=== PATIENT | female | born 1970 | race Caucasian/White ===

== ENCOUNTER → 2018-09-03 07:11 | Outpatient (CLI) | payer OTHER, SELFPAY ==
--- NOTE | 2018-09-03 07:19 | BI_ITS ---
MAMMOGRAPHY - BILATERAL SCREENING 3-D HALIMA SYNTHESIS REASON FOR EXAM: Female, 48 years old. Bilateral Screening 3-D tomosynthesis PERTINENT HISTORY: Personal history of melanoma at age 47. TECHNIQUE: 2-D mammograms and 3-D Halima synthesis of the breast (s) were performed. CAD was performed. COMPARISON: None. FINDINGS: The breast composition is almost entirely fat. Scattered benign calcifications are stable. There are stable normal-appearing lymph nodes. No dense spiculated masses or suspicious microcalcifications are identified. No architectural distortion is identified. There is no skin thickening or retraction. There has been no significant change since the prior study. BI/SCREENING MAMM (CAD), BILAT IMPRESSION: No mammographic signs of malignancy. Routine yearly mammograms recommended. ASSESSMENT CATEGORY: BIRADS Category 2: Benign. A letter regarding these results will be sent to the patient by the facility within 30 days. FOLLOW UP RECOMMENDATION: Yearly follow up mammogram recommended. (A) Approximately 10% of breast cancers are not detected by mammography. A normal mammogram should not delay biopsy of a clinically suspicious abnormality. Electronically Signed: Danyel Tam MD at 17:49 EDT , Service support ,
== END ==
PROVIDERS: Family Provider Family Medicine; PCP Family Medicine; Visit Provider Family Medicine
DX: Z12.31 Encounter for screening mammogram for malignant neoplasm of breast (principal)
CPT/HCPCS: 77063; 77067

== ENCOUNTER → 2018-09-28 16:17 | Outpatient (CLI) | payer OTHER, SELFPAY ==
[2018-09-28 11:08] VITALS: BMI 22.1
[2018-10-04 17:43] LABS: HPV APTIMA, High Risk Positive (Negative)
== END ==
PROVIDERS: Family Provider Family Medicine; PCP Family Medicine; Referring Provider Obstetrics & Gynecology; Visit Provider Obstetrics & Gynecology
DX: Z12.4 Encounter for screening for malignant neoplasm of cervix (principal)
CPT/HCPCS: 87624; 88175; G0145

== ENCOUNTER → 2018-11-23 13:13 | Outpatient (CLI) | payer OTHER, SELFPAY ==
--- NOTE | 2018-11-23 | IMM_PTH ---
PATIENT: NAY ALBRIGHT LOC: [facility] U#:[id number] AGE/SX: 54/F ROOM: RE11/23/[address]: Dr. Elizabeth Lentz MD : 1970 BED: DIS: SPEC #: [id number] RECD: 11/24/18 12:46 STATUS: BEVERLEY REQ #: [id number] DESTINI: 11/23/18 00:[address]: Elizabeth Lentz DEPT: IMMUNOHISTOCHEMISTRY RECD BY: Radha Gomez ENTERED: 11/24/18 12:46 SP TYPE: IMMUNO OTHR DR: Dr. Clifton Olson, Tissues: B - Uterine cervix, NOS Procedures: p16 (initial) KI-67 (add) PHYSICIAN & [place] [id number] SPECIMEN INFORMATION: Tissue Source: B - Biopsy Clinical Info: ASCUS, HPV positive Specimen Number: [id number] CPT code: 94205, 13521 METHODOLOGY: Deparaffinized sections of prefer/formalin-fixed tissue or PAP/DQ stained slides are incubated with monoclonal/polyclonal antibodies/oligonucleotide probes. Localization is made via biotin free immunoperoxidase method. Appropriate controls are performed and reacted as expected. Results on target cell population are indicated in the following table: RESULTS: ANTIBODY / CLONE RESULT Block B P16 (E6H4) positive, focal, patchy Ki-67 (30-9) positive, low These tests were developed and their performance characteristics determined by [facility]. They may not have been cleared or approved by the U.S. Food and Drug Administration. The FDA has determined that such clearance or approval is not necessary. INTERPRETATION: B. Cervical biopsy: Consistent with focal HPV change. AM:sallie 11/25/18
--- NOTE | 2018-11-23 | ECC_PTH ---
PATIENT: NAY ALBRIGHT LOC: [facility] U#:[id number] AGE/SX: 54/F ROOM: RE11/23/[address]: Dr. Elizabeth Lentz MD : 1970 BED: DIS: SPEC #: [id number] RECD: 11/23/18 12:54 STATUS: BEVERLEY MADELINE #: [id number] DESTINI: 11/23/18 00:[address]: Elizabeth Lentz DEPT: SURGICAL PATHOLOGY RECD BY: Fermin Burgess ENTERED: 11/23/18 14:07 SP TYPE: ADDY MEYER DR: Dr. Clifton Olson, DO Tissues: A - Endocervical B - Uterine cervix, NOS Procedures: Surgery Specimen Level IV HEADER OPERATION: Colposcopy PRE-OP DIAGNOSIS: ASCUS, HPV positive TISSUE SUBMITTED: ABoris DALY B. Biopsy MICROSCOPIC DIAGNOSIS A. Endocervix, curettings: Scant strips of benign superficial endocervix. Fragment of benign squamous mucosa. No evidence of dysplasia. B. Biopsy, not further specified: Squamous mucosa with HPV change/FINA I. Squamous metaplasia and mild chronic inflammation. See comment. AM:sallie 11/24/18 COMMENT B. Results from immunohistochemistry ([id number]) for surrogate HPV marker (p16) will be reported separately. Case has been reviewed in consultation with Dr. Seaman who concurs with the above diagnosis. IDC:VALENTINE MICROSCOPIC DESCRIPTION Slides are reviewed. GROSS DESCRIPTION A - Received in fixative is one container labeled with the patient's name and designated ECC. The specimen consists of multiple scant fragments of oneal mucoid tissue that in aggregate measure 1 x 0.3 x 0.1 cm. The specimen is totally submitted in one cassette. B - Received in fixative is one container labeled with the patient's name and designated biopsy. The specimen consists of one irregular fragment of light oneal soft tissue that measures 0.3 x 0.3 x 0.1 cm. The specimen is totally submitted in one cassette. / VALENTINE:sallie 11/23/18 TC:5 CPT: 96760 x2
[2018-11-23 11:56] VITALS: BMI 22.3
== END ==
PROVIDERS: Family Provider Family Medicine; PCP Family Medicine; Referring Provider Obstetrics & Gynecology; Visit Provider Obstetrics & Gynecology
DX: R87.610 Atypical squamous cells of undetermined significance on cytologic smear of cervix (ASC-US) (principal)
CPT/HCPCS: 88305; 88341; 88342

== ENCOUNTER 2019-05-05 13:30 | Outpatient (RCR) | payer OTHER, SELFPAY ==
[2018-09-28 11:08] VITALS: BMI 22.1
[2018-11-23 11:56] VITALS: BMI 22.3
--- NOTE | 2018-11-23 16:32 | MASS.EVAL ---
Massage Therapy Evaluation: Initial Evaluation Date: 11/23/2018 SUBJECTIVE: Martha is a 48 year old female who was referred to the [facility] for a massotherapy evaluation by Dr. Pisano with the diagnosis of cerviaclgia. Martha presents today with the symptoms of pain, stiffness and tension in her neck and mid back. Martha reports having a past medical history of pain and tension in her neck and shoulders related to her posture at work. She reports that she fell approximately 15 years ago hitting her right sacral region and still has tenderness in that area. She reports having minimal improvement with exercise and stretching. OBJECTIVE: Upon observation Martha has some posture issues with her head and shoulders forward from the neutral position in sitting and standing. After examination and palpation I found Martha to have high muscle tension with tenderness and myofascial restrictions in her sub occipitals, levator scapulae, trapezius, rhomboids, scalenes, and thoracic paraspinals. Her QL?s, lumbar paraspinals, piriformis, glute medius and minimus all were very tight with fascial restrictions, tender points and trigger points. The first treatment consisted of a one hour massage to her upper body with myofascial release, muscle stripping, trigger point compression techniques, and cervical manual traction. ASSESSMENT: I feel that Martha is a good candidate for massotherapy at this time. She had a favorable response to the first treatment with reduction in her muscle aches, pain and tension. She also had improvement in her cervical flexibility and low back flexibility. PLAN: The plan of care was reviewed with the patient. The patient is to be seen on an as needed basis for a total of ten sessions with the recommendation of once every month for a one hour treatment.
--- NOTE | 2018-11-23 16:40 | MASS.EVAL_ITS ---
Massage Therapy Evaluation: Initial Evaluation Date: 11/23/2018 SUBJECTIVE: Martha is a 48 year old female who was referred to the [facility] for a massotherapy evaluation by Dr. Pisano with the diagnosis of cerviaclgia. Martha presents today with the symptoms of pain, stiffness and tension in her neck and mid back. Martha reports having a past medical history of pain and tension in her neck and shoulders related to her posture at work. She reports that she fell approximately 15 years ago hitting her right sacral region and sti ll has tenderness in that area. She reports having minimal improvement with exercise and stretching. OBJECTIVE: Upon observation Martha has some posture issues with her head and shoulders forward from the neutral position in sitting and standing. After examination and palpation I found Martha to have high muscle tension with tenderness and myofascial restrictions in her sub occipitals, levator scapulae, trapezius, rhomboids, scalenes, and thoracic paraspinals. Her QL?s, lumbar paraspinals, piriformis, glute medius and minimus all were very tight with fascial restrictions, tender points and trigger points. The first treatment consisted of a one hour massage to her upper body with myofascial release, muscle stripping, trigger point compression techniques, and cervical manual traction. ASSESSMENT: I feel that Martha is a good candidate for massotherapy at this time. She had a favorable response to the first treatment with reduction in her muscle aches, pain and tension. She also had improvement in her cervical flexibility and low back flexibility. PLAN: The plan of care was reviewed with the patient. The patient is to be seen on an as needed basis for a total of ten sessions with the recommendation of once every month for a one hour treatment.
--- NOTE | 2019-06-01 14:05 | MASS.DISCH ---
Massage Therapy Discharge Summary: Discharge Date: 06/01/2019 Martha was seen for a massotherapy evaluation on 11/23/2018 with the diagnosis of cervicalgia. She was treated with six sessions of massage therapy consisting of moderate to deep pressure soft tissue techniques, myofascial release and trigger point compression to her cervical, thoracic, lower back, upper extremities, lower extremities and hips. Martha responded well to the therapy by reporting decreased tension and pain throughout her head, neck, shoulders, lower back and hips. Her goals for therapy were met throughout the treatment sessions. At this time this patient is being discharged from our care at [facility] facility.
== END 2019-05-05 19:00 | disposition home or self-care (01) ==
LOC: MASS 13:30
PROVIDERS: Family Provider Family Medicine; PCP Family Medicine; Referring Provider Obstetrics & Gynecology; Visit Provider Obstetrics & Gynecology
DX: M54.2 Cervicalgia (principal)
CPT/HCPCS: 97124

== ENCOUNTER → 2019-05-31 11:13 | Outpatient (CLI) | payer OTHER, SELFPAY ==
[2019-05-29 10:23] VITALS: BMI 22.3
--- NOTE | 2019-05-31 11:13 | US_ITS ---
STUDY: ULTRASOUND BREAST - RIGHT REASON FOR EXAM: Female, 48 years old. Pain in the right breast. TECHNIQUE: Axial and longitudinal images of the RIGHT breast were performed with a high resolution ultrasound transducer. # OF IMAGES: 45 COMPARISON: Comparison is made with prior mammogram dated May 31, 2019. FINDINGS: RIGHT Breast: The lateral half of the right breast was examined by ultrasound. There is a 6 mm x 6 mm x 3 mm well-defined lymph node at the 9:00 position of the breast. This corresponds to the mammographic findings. US/Breast Limited Unilateral IMPRESSION: The mammographic findings correspond to a 6 mm x 6 mm x 3 mm lymph node. ASSESSMENT CATEGORY: BIRADS Category 2: Benign. A letter regarding these results will be sent to the patient by the facility within 30 days. Electronically Signed: Johan Combs, at 15:44 EST , Service support ,
--- NOTE | 2019-05-31 11:13 | BI_ITS ---
MAMMOGRAPHY - BILATERAL DIAGNOSTIC REASON FOR EXAM: Female, 48 years old. Right axillary breast pain. PERTINENT HISTORY: Non-contributory. Personal history of melanoma. TECHNIQUE: Digital bilateral breast luiz (3D mammographic acquisition) in the CC and MLO projections. 2-D mediolateral oblique (MLO) and craniocaudad (CC) views of both breasts were obtained. CAD: Full Field Digital Mammography with Computer Added Detection was performed. COMPARISON: Comparison is made with prior examination dated September 03, 2018. FINDINGS: Breast Composition: The breasts are heterogeneously dense, which may obscure small masses. There are no dominant masses or suspicious calcifications. Stable appearance of the bilateral axillary lymph nodes. No other significant abnormalities are identified. There has been no significant change since the prior study. BI/DIAG MAMM W/CAD, BILAT IMPRESSION: Stable bilateral diagnostic mammogram. With the patient''s history of right axillary breast pain, correlation with ultrasound is recommended. ASSESSMENT CATEGORY: BIRADS Category 0: Incomplete. Need additional imaging evaluation. A letter regarding these results will be sent to the patient by the facility within 30 days. Approximately 10% of breast cancers are not detected by mammography. A normal mammogram should not delay biopsy of a clinically suspicious abnormality. Electronically Signed: Johan Combs, at 13:56 EST , Service support ,
== END ==
PROVIDERS: Family Provider Family Medicine; PCP Family Medicine; Referring Provider Obstetrics & Gynecology; Visit Provider Obstetrics & Gynecology
DX: N64.4 Mastodynia (principal)
CPT/HCPCS: 76642; 77062; 77066; G0279

== ENCOUNTER → 2020-02-05 | Outpatient (CLI) | payer OTHER, SELFPAY ==
[2020-02-05 08:16] VITALS: BMI 22.3
[2020-02-09 13:18] LABS: HPV APTIMA, High Risk Negative (Negative)
== END | disposition home or self-care (01) ==
LOC: LABSPEC 16:35
PROVIDERS: PCP Family Medicine; Referring Provider Obstetrics & Gynecology; Visit Provider Obstetrics & Gynecology
DX: N87.0 Mild cervical dysplasia (principal)
CPT/HCPCS: 87624; 88175; G0145

== ENCOUNTER → 2021-01-13 07:31 | Outpatient (CLI) | payer OTHER, SELFPAY ==
[2020-02-05 08:16] VITALS: BMI 22.3
--- NOTE | 2021-01-13 07:33 | BI_ITS ---
MAMMOGRAPHY - BILATERAL SCREENING REASON FOR EXAM: Female, 50 years old. Routine annual screening examination. PERTINENT HISTORY: Non-contributory. Personal history of melanoma. TECHNIQUE: Digital bilateral breast halima (3D mammographic acquisition) in the CC and MLO projections. 2-D mediolateral oblique (MLO) and craniocaudad (CC) views of both breasts were obtained. CAD: Full Field Digital Mammography with Computer Added Detection was performed. COMPARISON: Comparison is made with prior examination dated 05/31/2019 and 09/03/2018. FINDINGS: Breast Composition: The breasts are heterogeneously dense, which may obscure small masses. There are no dominant masses or suspicious calcifications. No other significant abnormalities are identified. There has been no significant change since the prior study. BI/SCRN MAMM (CAD)W/HALIMA BILAT IMPRESSION: Stable bilateral screening mammogram. Yearly follow-up mammogram recommended. (A) ASSESSMENT CATEGORY: BIRADS Category 1: Negative. A letter regarding these results will be sent to the patient by the facility within 30 days. Approximately 10% of breast cancers are not detected by mammography. A normal mammogram should not delay biopsy of a clinically suspicious abnormality. [id number] Electronically Signed: Johan Combs MD at 9:39 EDT , Service support ,
== END ==
PROVIDERS: PCP Student in an Organized Health Care Education/Training Program; Referring Provider Student in an Organized Health Care Education/Training Program; Visit Provider Student in an Organized Health Care Education/Training Program
DX: Z12.31 Encounter for screening mammogram for malignant neoplasm of breast (principal)
CPT/HCPCS: 77063; 77067

== ENCOUNTER → 2022-05-12 | Outpatient (CLI) | payer OTHER, SELFPAY ==
--- NOTE | 2022-05-12 10:50 | RAD_ITS ---
STUDY: X-RAY - RIGHT TIBIA AND FIBULA REASON FOR EXAM: Female, 51 years old. Knee pain. TECHNIQUE: AP and lateral view(s) of the tibia and fibula were obtained. COMPARISON: Right knee right ankle, May 12, 2022. FINDINGS: Normal visualized tibia. Normal visualized fibula. There is no acute fracture, dislocation or destructive osseous pathology. The knee and ankle are unremarkable. The soft tissue structures are unremarkable. RAD/Tibia & Fibula 2 Views IMPRESSION: Normal x-ray examination of the right tibia and fibula. Electronically Signed: Osiel Walls DO at 17:32 EST ,
--- NOTE | 2022-05-12 10:50 | RAD_ITS ---
STUDY: X-RAY - RIGHT KNEE REASON FOR EXAM: Female, 51 years old. Knee pain. TECHNIQUE: 4 view(s) of the knee. COMPARISON: Right tibia-fibula, May 12, 2022. FINDINGS: Normal visualized distal femur. Normal visualized proximal tibia and fibula. Normal proximal tibiofibular articulation. There is no acute fracture, dislocation or destructive osseous pathology. Normal medial femorotibial compartment. Normal lateral femorotibial compartment. Normal patellofemoral articulation. There is no demonstrated joint effusion. The soft tissue structures are unremarkable. RAD/Knee 3 Views IMPRESSION: Normal x-ray examination of the right knee. Electronically Signed: Osiel Walls DO at 17:31 EST Reading Location ID and State: [id number] [place] Tel [phone], Service support ,
--- NOTE | 2022-05-12 10:50 | RAD_ITS ---
STUDY: X-RAY - RIGHT ANKLE REASON FOR EXAM: Female, 51 years old. Ankle pain. TECHNIQUE: 3 view(s) of the ankle. COMPARISON: None. FINDINGS: Normal visualized distal tibia and fibula. Normal medial and lateral malleoli. Normal tibiotalar articulation and ankle mortise. Normal visualized talus and calcaneus. The visualized subtalar, talonavicular, calcaneocuboid and tarsal articulations are normal. The soft tissue structures are unremarkable. RAD/Ankle min 3 Views IMPRESSION: Normal x-ray examination of the ankle. Electronically Signed: Osiel Walls DO at 17:31 EST ,
== END | disposition home or self-care (01) ==
LOC: RAD 10:45
PROVIDERS: PCP Student in an Organized Health Care Education/Training Program; Referring Provider Student in an Organized Health Care Education/Training Program; Visit Provider Student in an Organized Health Care Education/Training Program
DX: M25.579 Pain in unspecified ankle and joints of unspecified foot (principal); M25.569 Pain in unspecified knee
CPT/HCPCS: 73562; 73590; 73610

== ENCOUNTER → 2022-05-14 | Outpatient (CLI) | payer OTHER, SELFPAY ==
[2022-05-22 16:41] LABS: HPV APTIMA, High Risk Negative (Negative)
== END | disposition home or self-care (01) ==
LOC: LABSPEC 13:36
PROVIDERS: PCP Student in an Organized Health Care Education/Training Program; Referring Provider Obstetrics & Gynecology; Visit Provider Obstetrics & Gynecology
DX: Z12.4 Encounter for screening for malignant neoplasm of cervix (principal)
CPT/HCPCS: 87624; 88175; G0145

== ENCOUNTER → 2022-05-15 | Outpatient (CLI) | payer OTHER, SELFPAY ==
--- NOTE | 2022-05-15 14:27 | US_ITS ---
STUDY: SUPERFICIAL ULTRASOUND - RIGHT POPLITEAL FOSSA. REASON FOR EXAM: Female, 51 years old. SWELLING AND PAIN RIGHT POSTERIOR KNEE TECHNIQUE: A superficial ultrasound was performed with real-time and static zamora-scale imaging. COMPARISON: None. FINDINGS: No Silva''s cyst or mass or lymphadenopathy in the popliteal fossa. US/Ext Non Vasc Limited/Soft Tiss IMPRESSION: Normal ultrasound of the right popliteal fossa. Electronically Signed: Santos Cooley MD at 15:04 EST ,
== END | disposition home or self-care (01) ==
PROVIDERS: PCP Student in an Organized Health Care Education/Training Program; Referring Provider Student in an Organized Health Care Education/Training Program; Visit Provider Student in an Organized Health Care Education/Training Program
DX: M25.469 Effusion, unspecified knee (principal)
CPT/HCPCS: 76882

== ENCOUNTER 2022-05-21 08:59 | Outpatient (RCR) | payer OTHER, SELFPAY ==
--- NOTE | 2022-05-21 10:26 | HP.PTEVAL_ITS ---
Patient's Visit Information NAY HOLMAN is a 51 year old F referred to Physical Therapy by Dr. Robbin Pagan DO with a diagnosis of R knee pain. Date of Evaluation: 05/21/22 Physical Therapist: Tee Real PT, ATC - Visit Plan Frequency: 2-3x /Week Duration: 4-6 Weeks Plan: R LE stretching and strengthening, DTR, stick rollout, US, and bike - Subjective Pt reports she has had R knee pain for 8 weeks. Pt reports her pain had an insidious onset in nature. Pt reports she was wearing a new pair of sandals at the time and she wonders if that may have caused her pain. Pt notes she has had x-rays which were normal. Pt also notes she had an ultrasound which was normal. Pt reports she is getting scheduled for an MRI in the near future. Pt denies any PMHx of R knee pain in the past. Pt denies tingling or numbness in R LE. Pt reports sleep difficulty secondary to pain. Pt reports difficulty with stair negotiation secondary to pain. Pt reports most of her pain is located on the posterior aspect of the R knee. Pt reports the pain is greatest when she attempts to flex her knee. 0/10 pain at rest, 10/10 pain at worst - Pain R knee Pain Intensity (Out of 10): 0 Pain Intensity Range: 10 - Objective Neuro: B LE sensation is WNL to light touch. B patellar reflex= 2/3. Girth at joint line: 31 cm bilat. Palpation: Pt is sore on the posterior aspect of the R knee. No obvious deformity at this time. ROM: L knee 0-140; R knee 0-125. MMT: L knee flex= 33, ext= 37 #F; R knee flex= 8, ext= 27 #F - Balance/Special Test Scores Lower Extremity Functional Score: 35 - Goals Goal 1:: Decrease R knee pain x 50% to aid with sleep Goal Time Frame: 4-6 Weeks Goal 2:: Increase R knee strength x 10 #F to aid with stair negotiation Goal Time Frame: 4-6 Weeks Goal 3:: Increase R knee ROM x 10 degrees to aid with restoring a more normalized gait pattern Goal Time Frame: 4-6 Weeks Goal 4:: I with HEP Goal Time Frame: 4-6 Weeks - Rehabilitation Potential Physical Therapy Diagnosis: Pt has R knee pain, weakness, and limited ROM sec ondary to L knee strain Rehabilitation Potential: Good - Anticipated Interventions Patient/Client Instruction: Educate patient on: Condition, Plan of Care For the Purpose of:: To improve self management Therapeutic Exercise to Include: Strength training, Balance training, Flexibilty training, Active ROM, Dynamic Lumbar Stabilization For the Purpose of:: To decrease pain, To increase ROM, To improve muscle performance and motor function Ultrasound (thermal/non thermal): Yes For the Purpose of:: To decrease pain Thank you for the opportunity to evaluate your patient. For Medicare and Medicare HMO plans, please review the plan of care and approve it. It will need to be FAXED BACK to us at [phone] for Medicare purposes. For Medicare only, by signing this I certify the plan of care. Please let me know if there are questions or concerns regarding this plan of care. Physician Signature: Date:
--- NOTE | 2022-10-02 07:40 | HP.PT.NRP ---
NAY HOLMAN was seen in my office for initial evaluation on 05/21/22. The following Plan of Care was established for this patient: Initial Frequency: 2-3x /Week Initial Duration: 4-6 Weeks Patient/Client Instruction: Educate patient on: Condition, Plan of Care For the Purpose of:: To improve self management Therapeutic Exercise to Include: Strength training, Balance training, Flexibilty training, Active ROM, Dynamic Lumbar Stabilization For the Purpose of:: To decrease pain, To increase ROM, To improve muscle performance and motor function Ultrasound (thermal/non thermal): Yes For the Purpose of:: To decrease pain This patient was last seen in our office . Pertinent comments regarding their Physical therapy will appear below: Pt was evaluated for R knee pain on the date of 05/21/22. Pt has not returned through todays date and is discontinued at this time. At this point I will be discontinuing this patient from physical therapy. I would be happy to see this patient again in the future if found appropriate by the physician. Thank you! Tee Real, PT, ATC Balance/Gait/Functional tests - Balance/Special Test Scores Lower Extremity Functional Score: 35
== END 2022-05-21 19:00 | disposition home or self-care (01) ==
LOC: PT 08:59
PROVIDERS: PCP Student in an Organized Health Care Education/Training Program; Referring Provider Student in an Organized Health Care Education/Training Program; Visit Provider Student in an Organized Health Care Education/Training Program
DX: M25.569 Pain in unspecified knee (principal)
CPT/HCPCS: 97161

== ENCOUNTER → 2022-05-25 | Outpatient (CLI) | payer OTHER, SELFPAY ==
--- NOTE | 2022-05-25 11:30 | BI_ITS ---
MAMMOGRAPHY - BILATERAL SCREENING REASON FOR EXAM: Female, 51 years old. Routine annual screening examination. PERTINENT HISTORY: Non-contributory. TECHNIQUE: Digital bilateral breast halima (3D mammographic acquisition) in the CC and MLO projections. 2-D mediolateral oblique (MLO) and craniocaudad (CC) views of both breasts were obtained. CAD: Full Field Digital Mammography with Computer Added Detection was performed. COMPARISON: Comparison is made with prior study 01/13/2021 and 05/31/2019. FINDINGS: Breast Composition: There are scattered areas of fibroglandular density. There are no dominant masses or suspicious calcifications. No other significant abnormalities are identified. There has been no significant change since the prior study. BI/SCRN MAMM (CAD)W/HALIMA BILAT IMPRESSION: Stable bilateral screening mammogram. Yearly follow-up mammogram recommended. (A) ASSESSMENT CATEGORY: BIRADS Category 1: Negative. A letter regarding these results will be sent to the patient by the facility within 30 days. Approximately 10% of breast cancers are not detected by mammography. A normal mammogram should not delay biopsy of a clinically suspicious abnormality. [id number] Electronically Signed: Johan Combs MD at 12:14 EST ,
== END | disposition home or self-care (01) ==
LOC: OPBI 11:39
PROVIDERS: PCP Student in an Organized Health Care Education/Training Program; Visit Provider Obstetrics & Gynecology
DX: Z12.31 Encounter for screening mammogram for malignant neoplasm of breast (principal)
CPT/HCPCS: 77063; 77067

== ENCOUNTER → 2022-06-02 | Outpatient (CLI) | payer OTHER, SELFPAY ==
--- NOTE | 2022-06-02 09:20 | MRI_ITS ---
STUDY: MRI RIGHT KNEE REASON FOR EXAM: Female, 51 years old. PERSISTENT PAIN RT KNEE, nki, posterior pain TECHNIQUE: Standardized fat and water weighted pulse sequences were obtained in all 3 orthogonal planes. COMPARISON: X-ray of the left knee dated May 12, 2022 FINDINGS: Normal medial meniscus. There is 50%/moderate cartilage loss over the central to inner one third aspect of the medial femoral condyle. The remaining cartilage surfaces of the medial compartment are normal. Normal medial femoral condyle and tibial plateau. Normal medial collateral ligamentous complex (MCL). Normal distal semimembranosus, gracilis and semitendinosus tendons. Normal lateral meniscus. Normal hyaline cartilage of the lateral femorotibial compartment. Normal lateral femoral condyle and tibial plateau. Normal proximal tibiofibular articulation. Normal lateral collateral (fibular) ligament. Normal popliteus tendon. Normal biceps femoris tendon. Normal anterior cruciate ligament (ACL). Normal posterior cruciate ligament (PCL). Normal congruent patellofemoral articulation. There is full-thickness loss of cartilage over the lateral patellar facet, in addition to moderate underlying subchondral reactive edema and developing cystic changes in the upper pole. The medial patellar facet cartilage is preserved. There is greater than 50% loss of cartilage and thinning of the trochlear groove. Normal medial and lateral patellar retinaculum. Normal quadriceps tendon. Normal patellar tendon. Normal Hoffa''s fat pad. A small joint effusion is present. The soft tissues are unremarkable. The otherwise visualized osseous structures are unremarkable. MRI/Lower Ext Joint Only (Routine) IMPRESSION: 1. 50%/moderate cartilage loss over the central to inner one third aspect of the medial femoral condyle. The remaining cartilage surfaces of the medial compartment are normal. 2. Full-thickness loss of cartilage over the lateral patellar facet, in addition to moderate underlying subchondral reactive edema and developing cystic changes in the upper pole. Electronically Signed: John Maldonado MD at 11:21 EST ,
== END | disposition home or self-care (01) ==
LOC: MRI 09:06
PROVIDERS: PCP Student in an Organized Health Care Education/Training Program; Visit Provider Student in an Organized Health Care Education/Training Program
DX: M25.561 Pain in right knee (principal)
CPT/HCPCS: 73721

== ENCOUNTER → 2022-06-04 | Outpatient (CLI) | payer OTHER, SELFPAY ==
--- NOTE | 2022-06-04 12:49 | VDLE_ITS ---
Reason For Study: pain RIGHT GSV is normal. CFV is compressible, spontaneous, phasic, competent and demonstrates normal augmentation. FV is compressible, spontaneous, phasic, competent and demonstrates normal augmentation. POP V is compressible, spontaneous, phasic, competent and demonstrates normal augmentation. T/P Trunk is compressible. PTV is compressible. RT PerV is compressible. Procedure This is a venous duplex using B-mode, color flow and spectral Doppler. Exam performed in department. The exam was abbreviated due to the COVID 19 protocol. The exam was diagnostic. A preliminary report was called and/or faxed to Guillermo ESTRADA. VL/Venous Duplex US, Unilateral Interpretation Summary There is no evidence of right lower extremity deep vein thrombosis. Right great saphenous vein appears patent and compressible segmentally. Abbreviated COVID-19 protocol util ized Ordering Physician: Guillermo Dwyer Performed By: Alexys Matthew RVT
== END | disposition home or self-care (01) ==
LOC: CVS 12:48
PROVIDERS: PCP Student in an Organized Health Care Education/Training Program; Visit Provider Physician Assistant
DX: M79.604 Pain in right leg (principal)
CPT/HCPCS: 93971

== ENCOUNTER → 2023-05-13 | Outpatient (CLI) | payer OTHER, SELFPAY ==
--- NOTE | 2023-05-13 11:11 | BI_ITS ---
MAMMOGRAPHY - BILATERAL SCREENING REASON FOR EXAM: Female, 52 years old. Routine annual screening examination. PERTINENT HISTORY: Non-contributory. TECHNIQUE: Digital bilateral breast halima (3D mammographic acquisition) in the CC and MLO projections. 2-D mediolateral oblique (MLO) and craniocaudad (CC) views of both breasts were obtained. CAD: Full Field Digital Mammography with Computer Added Detection was performed. COMPARISON: Comparison is made with prior study dated May 25, 2022 and January 13, 2021. FINDINGS: Breast Composition: The breasts are heterogeneously dense, which may obscure small masses. There are no dominant masses or suspicious calcifications. No other significant abnormalities are identified. There has been no significant change since the prior study. BI/SCRN MAMM (CAD)W/HALIMA BILAT IMPRESSION: Stable bilateral screening mammogram. Yearly follow-up mammogram recommended. (A) ASSESSMENT CATEGORY: BIRADS Category 1: Negative. A letter regarding these results will be sent to the patient by the facility within 30 days. Approximately 10% of breast cancers are not detected by mammography. A normal mammogram should not delay biopsy of a clinically suspicious abnormality. [id number] Electronically Signed: Johan Combs MD at 12:58 EST ,
--- NOTE | 2023-05-13 14:20 | US_ITS ---
STUDY: ULTRASOUND BREAST - LEFT REASON FOR EXAM: Female, 52 years old. Abnormal screening mammogram. TECHNIQUE: Axial and longitudinal images of the LEFT breast were performed with a high resolution ultrasound transducer. # OF IMAGES: 44 COMPARISON: Comparison is made with prior mammogram done earlier today. FINDINGS: LEFT Breast: The medial aspect of the left breast was examined with ultrasound. There is a 6 mm x 3 mm x 5 mm poorly defined hypoechoic density at the 6:00 position of the breast at 3 cm from the nipple. Biopsy recommended. US/Breast Limited Unilateral IMPRESSION: 6 mm x 3 mm x 5 mm poorly defined hypoechoic solid density at the 6:00 position the breast at 3 7 from nipple. Biopsy is recommended. ASSESSMENT CATEGORY: BIRADS Category 4: Suspicious - Biopsy Should Be Considered. A letter regarding these results will be sent to the patient by the facility within 30 days. Electronically Signed: Johan Combs MD at 15:08 EST ,
== END | disposition home or self-care (01) ==
PROVIDERS: PCP Student in an Organized Health Care Education/Training Program; Referring Provider Obstetrics & Gynecology; Visit Provider Obstetrics & Gynecology
DX: Z12.31 Encounter for screening mammogram for malignant neoplasm of breast (principal); N63.25 Unspecified lump in the left breast, overlapping quadrants
CPT/HCPCS: 76642; 77063; 77067

== ENCOUNTER → 2023-05-15 | Outpatient (CLI) | payer OTHER, SELFPAY ==
--- NOTE | 2023-05-14 | BRBX_PTH ---
PATIENT: NAY ALBRIGHT LOC: [facility] U#:[id number] AGE/SX: 52/F ROOM: RE05/15/[address]: Dr. Michael Quiros MD : 1970 BED: DIS: 05/15/2023 SPEC #: [id number] RECD: 05/14/23 14:00 STATUS: BEVERLEY MADELINE #: [id number] DESTINI: 05/14/23 00:[address]: Michael Quiros DEPT: SURGICAL PATHOLOGY RECD BY: Danny Marcial ENTERED: 05/17/23 07:32 SP TYPE: BREAST BX OTHR DR: Dr. Robbin Pagan, DO Tissues: Left breast, NOS Procedures: Surgery Specimen Level IV HEADER OPERATION: Ultrasound-guided needle core biopsy left breast PRE-OP DIAGNOSIS: Left breast mass TISSUE SUBMITTED: Left breast biopsy MICROSCOPIC DIAGNOSIS Left breast mass, ultrasound-guided needle core biopsy: Invasive lobular carcinoma, nuclear grade I (0.8 cm in greatest length). See comment. SJ:sallie 05/17/2023 COMMENT Immunohistochemistry ([id number]) supports the above diagnosis. ER/FL/Ece6szu studies are being performed on sections of tumor and the results from this study will be reported separately ([id number]). Preliminary result that lesion is invasive carcinoma is reported to Dr. Quiros's nurse on 05/17/2023. Case has been reviewed in consultation with Dr. Perea who concurs with the above diagnosis. IDC:AM MICROSCOPIC DESCRIPTION Slides are reviewed. GROSS DESCRIPTION Received in fixative is one container labeled with the patient's name and designated left breast biopsy. The specimen consists of two elongated fragments of oneal tissue. Each fragment measures 1.2 cm in length and 0.2 cm in diameter. The specimen is totally submitted in one cassette. / AM:sallie 05/14/2023 TC:0 Ischemic Time: 1 minute Fixation Time: 55 hours CPT: 34175
--- NOTE | 2023-05-14 | IMM_PTH ---
PATIENT: NAY ALBRIGHT LOC: [facility] U#:[id number] AGE/SX: 52/F ROOM: RE05/15/[address]: Dr. Michael Quiros MD : 1970 BED: DIS: 05/15/2023 SPEC #: [id number] RECD: 05/17/23 14:31 STATUS: BEVERLEY REQ #: [id number] DESTINI: 05/14/23 00:[address]: Michael Quiros DEPT: IMMUNOHISTOCHEMISTRY RECD BY: Radha Gomez ENTERED: 05/17/23 14:32 SP TYPE: IMMUNO OTHR DR: Dr. Robbin Pagan DO Tissues: Left breast, NOS Procedures: CALPONIN-1 (add) CK5-6 (add) CK8 (add) E-CAD (add) HER2 MAGO (add) KI-67 (add) P53 (add) AZ (add) P40 (add) ER (initial) PHYSICIAN & INSTITUTION [address] [address] SPECIMEN INFORMATION: Tissue Source: Left breast mass Clinical Info: Left breast mass Specimen Number: [id number] CPT code: 36444, 72810 x9 METHODOLOGY: Deparaffinized sections of prefer/formalin-fixed tissue or PAP/DQ stained slides are incubated with monoclonal/polyclonal antibodies/oligonucleotide probes. Localization is made via biotin free immunoperoxidase method. Appropriate controls are performed and reacted as expected. Results on target cell population are indicated in the following table: RESULTS: ANTIBODY / CLONE RESULT E-Cad (ECH-6) negative CK8 ([id number]) positive Calponin-1 (NC045H) negative CK5-6 (D5 & 1684) negative P40 (BC28) negative P53 (DO-7) negative (null pattern) Ki-67 (30-9) positive ( low about 10%) MORPHOMETRIC ANALYSIS ER (clone 6F11) >95% strong intensity AZ (clone 16/1E2) 0 % Her-2Neu (clone CB11) 0 The prognostic test for HER2 is performed on formalin-fixed paraffin embedded tissue. A 3+ (positive) staining pattern is defined as intense, homogeneous, complete, circumferential membranous staining in >10% of contiguous tumor cells. A similar weak (2+) staining pattern is interpreted as equivocal. FERNANDO follow-up testing is recommended for all equivocal cases. Positivity/negativity for ER/AZ is reported if > or < 1% of the tumor cells are immuno- reactive, respectively. The ASCO/CAP criteria is used for scoring. Reference: Journal of Clinical Oncology, 2013; 31:6160-5396 & 2010; 16:9055-4363. Ischemic time: Less than one hour. Duration of fixation: 55 Hrs; Sample Adequate: Yes. These assays have not been validated on decalcified tissues. Results should be interpreted with caution given the likelihood of false negativity on decalcified specimens or fixation greater than 72 hours. Alternative testing methods (FISH/dualISH for Her2; gene expression for ER) are recommended, if applicable. Please notify the laboratory if additional testing is required. These tests were developed and their performance characteristics determined by [facility]. They may not have been cleared or approved by the U.S. Food and Drug Administration. The FDA has determined that such clearance or approval is not necessary. The above immunohistochemical/dualISH markers are ordered and reviewed by the Pathologist. INTERPRETATION: Left breast mass, core biopsy: Invasive lobular carcinoma, nuclear grade 1. Positive for estrogen receptors (favorable prognostic indicator). Negative for progesterone receptors (unfavorable prognostic indicator). Negative for overexpression of JCD9iaw. SJ/bl 05/18/2023
== END | disposition home or self-care (01) ==
LOC: LABSPEC 08:17
PROVIDERS: PCP Student in an Organized Health Care Education/Training Program; Referring Provider Surgery; Visit Provider Surgery
DX: N63.20 Unspecified lump in the left breast, unspecified quadrant (principal)
CPT/HCPCS: 88305; 88341; 88342

== ENCOUNTER → 2023-05-19 | Outpatient (CLI) | payer OTHER, SELFPAY ==
--- NOTE | 2023-05-19 13:50 | MRI_ITS ---
STUDY: BILATERAL BREAST MR WITHOUT AND WITH CONTRAST REASON FOR EXAM: Female, 52 years old. Breast cancer TECHNIQUE: Multi-sequence multi-echo imaging of both breasts was performed with a dedicated breast coil. T1-weighted and T2-weighted images were performed before the administration of contrast. T1-weighted images were also performed after the administration of IV Yes without complications. COMPARISON: FINDINGS: RIGHT BREAST: Scattered fibroglandular densities with minimal background enhancement. No abnormal enhancing masses or areas of non-mass enhancement in the right breast. LEFT BREAST: Scattered fibroglandular densities with minimal background enhancement. Irregular enhancing mass at the 6:00 position 2.3 cm measuring 11 mm x 6 mm x 11 mm with a tissue clip artifact within the central portion of the mass. This corresponds to the index lesion. No of liver abnormal enhancing masses or areas of non-mass enhancement in the left breast. No enlarged or abnormal lymph nodes. No abnormality in the visualized regions of the chest or liver. MRI/Breast Bilateral W/O and W IMPRESSION: Irregular enhancing mass at the 6:00 position of the left breast measuring 11 mm x 6 mm x 11 mm with tissue clip artifact centrally, compatible with the known breast cancer and representing the index lesion. No other abnormality identified. CATEGORY: BIRADS Category 6: Known Biopsy-Proven Malignancy - Appropriate Action Should Be Taken. A letter regarding these results will be sent to the patient by the facility within 30 days. Electronically Signed: Danyel Tam MD at 15:22 EST ,
== END | disposition home or self-care (01) ==
LOC: MRI 13:49
PROVIDERS: PCP Student in an Organized Health Care Education/Training Program; Referring Provider Surgery; Visit Provider Surgery
DX: C50.912 Malignant neoplasm of unspecified site of left female breast (principal)
CPT/HCPCS: 77049; A9575; C8908

== ENCOUNTER 2023-05-20 12:54 | Outpatient (CLI) | payer OTHER, SELFPAY ==
[2023-05-20 15:52] LABS: NATERA MAILED SPECIMEN
== END 2023-05-20 12:55 | disposition home or self-care (01) ==
LOC: MEDOUTP 12:55
PROVIDERS: PCP Student in an Organized Health Care Education/Training Program; Referring Provider Obstetrics & Gynecology; Visit Provider Obstetrics & Gynecology
DX: Z15.01 Genetic susceptibility to malignant neoplasm of breast (principal); Z80.3 Family history of malignant neoplasm of breast

== ENCOUNTER → 2023-05-20 | Outpatient (CLI) | payer OTHER, SELFPAY ==
[2023-05-25 17:07] LABS: HPV APTIMA, High Risk Negative (Negative)
== END | disposition home or self-care (01) ==
LOC: LABSPEC 13:53
PROVIDERS: PCP Student in an Organized Health Care Education/Training Program; Referring Provider Obstetrics & Gynecology; Visit Provider Obstetrics & Gynecology
DX: Z12.4 Encounter for screening for malignant neoplasm of cervix (principal)
CPT/HCPCS: 87624; 88175; G0145

== ENCOUNTER 2023-05-24 10:25 | Outpatient (CLI) | payer OTHER, SELFPAY ==
[2023-05-24 11:03] LABS: Hematocrit 43.3 % (37-47); Hemoglobin 13.8 g/dL (12.0-15.0); Mean Corp Hgb Conc 31.9 g/dL (32-36); Mean Corpuscular Hgb 30.8 pg (27.0-32.0); Mean Corpuscular Volume 96.7 fL (81-99); Mean Platelet Vol. 9.7 fl (6.2-12.0); Platelet Count 320 K/mm3 (150-450); RBC Distribution Width CV 12.8 % (11.6-14.6); RBC Distribution Width SD 45.2 fl (35.1-43.9); Red Blood Count 4.48 M/mm3 (4.2-5.4); White Blood Count 5.6 K/mm3 (4.4-11.0)
[2023-05-24 11:23] LABS: ALB/GLOB Ratio 1.2 RATIO (0.9-2.4); AST(SGOT) 16 U/L (15-37); Alanine Aminotransfer ALT/SGPT 18 U/L (13-56); Albumin, Serum 4.1 g/dL (3.2-5.0); Alkaline Phosphatase 62 U/L (45-117); Anion Gap 6 (5-15); BUN 11 mg/dL (7-18); BUN/Creat Ratio 15.3 RATIO (10-20); Calcium,Total 9.1 mg/dL (8.5-10.1); Chloride 104 mmol/L (98-107); Creatinine, Serum 0.72 mg/dL (0.55-1.02); EST Glomerular Filtration Rate 90 mL/min (>60); Est Glom Filt Rate - Afr Amer 109 mL/min (>60); Globulin 3.4 g/dL (2.2-4.2); Glucose 102 mg/dL (74-106); Potassium 3.6 mmol/L (3.5-5.1); Protein, Total 7.5 g/dL (6.4-8.2); Sodium Level 140 mmol/L (136-145)
== END 2023-05-24 10:26 | disposition home or self-care (01) ==
PROVIDERS: PCP Student in an Organized Health Care Education/Training Program; Referring Provider Surgery; Visit Provider Surgery
DX: Z01.812 Encounter for preprocedural laboratory examination (principal)
CPT/HCPCS: 80053; 85027

== ENCOUNTER → 2023-05-25 | Outpatient (CLI) | payer OTHER, SELFPAY ==
--- NOTE | 2023-05-25 08:02 | BD_ITS ---
STUDY: DUAL ENERGY X-RAY ABSORPTIOMETRY / DXA REASON FOR EXAM: Female, 52 years old. BREAST CA TECHNIQUE: Bone Mineral Density (BMD) measurements of lumbar spine and bilateral hips were obtained. COMPARISON: None. FINDINGS: Lumbar Spine (L1-L4): g/cm2 (0.808) / T-score (-2.7) / Z-score (-1.6) Findings are suggestive of osteoporosis with a high fracture risk. Left Femur Total: g/cm2 (0.780) / T-score (-1.3) / Z-score (-0.7) Left Femoral Neck: g/cm2 (0.694) / T-score (-1.4) / Z-score (-0.3) Right Femur Total: g/cm2 (0.816) / T-score (-1.0) / Z-score (-0.4) Right Femoral Neck: g/cm2 (0.717) / T-score (-1.2) / Z-score (-0.1) BD/Dexa Bone Density Study IMPRESSION: The patient is considered osteoporotic as outlined below according to World Mitchell Organization (WHO) criteria with a high fracture risk. Reference Information: The T-score is the number of standard deviations above or below the standard which is normal for young adults at their peak bone mineral density. The World Health Organization (WHO) interprets the T-scores as follows: Above -1 Normal bone density Between -1 and -2.5 Osteopenia Equal to / or below -2.5 Osteoporosis As a practical clinical guideline, osteopenia may be graded as follows: Mild -1 through -1.5 Moderate -1.6 through -2.0 Severe -2.1 through -2.4 The Z-score is the number of standard deviations above or below age-matched controls. A Z-score of less than -1.5 would be considered abnormal. References: 1. NIH Osteoporosis and Related Bone Diseases www osteo.org 2. International Society for Clinical Densitometry www iscd.org 3. National Osteoporosis Foundation www nof.org Electronically Signed: Johan Combs MD at 10:57 EST ,
== END | disposition home or self-care (01) ==
LOC: OPBD 08:24
PROVIDERS: PCP Student in an Organized Health Care Education/Training Program; Referring Provider Internal Medicine Medical Oncology; Visit Provider Internal Medicine Medical Oncology
DX: M81.0 Age-related osteoporosis without current pathological fracture (principal); C50.812 Malignant neoplasm of overlapping sites of left female breast; Z17.0 Estrogen receptor positive status [ER+]
CPT/HCPCS: 77080

== ENCOUNTER → 2023-05-26 | Outpatient (CLI) | payer OTHER, SELFPAY ==
--- NOTE | 2023-05-26 07:16 | NM_ITS ---
CLINICAL: 52-year-old female with history of primary breast carcinoma. WHOLE BODY 99m Tc MDP RADIONUCLIDE BONE SCINTIGRAPHY COMPARISON: None available FINDINGS: Following the intravenous administration of 28.0 mCi of 99m Tc MDP, whole body bone images reveal: 1. Increased tracer uptake is noted in the acromioclavicular compartments of both shoulders, the sternoclavicular compartment of the right shoulder, the patellofemoral compartments of both knees, the right-left forefoot, the left wrist, right hand. 2. The remaining skeletal structures are scintigraphically unremarkable with normal-appearing renal images and urinary bladder activity identified. NM/Bone Scan Whole Body IMPRESSION: 1. The increase in radiotracer distribution defined in the bilateral shoulder and knee articulations, the forefoot bilaterally, the left wrist and right hand is consistent with degenerative arthrosis. 2. There is no definitive scintigraphic evidence of diffuse axial skeletal metastatic disease. Electronically Signed: Marquis Lackey DO at 8:30 EST ,
--- NOTE | 2023-05-26 07:16 | CT_ITS ---
STUDY: CT CHEST, ABDOMEN T PELVIS WITH CONTRAST REASON FOR EXAM: Female, 52 years old. BREAST CANCER IV CONTRAST ONLY. Newly diagnosed left breast cancer. Prior left breast biopsy. RADIATION DOSAGE (If Supplied By Facility): CTDIvol = ( 8.06 ) mGy, DLP = ( 544.48 ) mGycm TECHNIQUE: Transaxial imaging was performed following intravenous administration of IV 100mL Isovue-370. Individualized dose optimization techniques were used for this CT. COMPARISON: No relevant priors. FINDINGS: CHEST Mild scarring at the right lung apex. There is no demonstrated pleural abnormality. Normal heart and pericardium. Normal mediastinum. Normal hilar regions. Normal unenhanced pulmonary arteries. Normal aorta arch and descending thoracic aorta. There are mild degenerative changes of the thoracic spine. There is no demonstrated abnormality of the visualized upper abdomen. ABDOMEN The visualized lung bases are unremarkable. The visualized portions of the heart are within normal limits. Normal liver. A small cholesterol-containing gallstone is seen. Normal spleen. Normal pancreas. Normal bilateral adrenal glands. Normal right kidney. Normal left kidney. Normal visualized stomach. Normal small intestine. Moderate amount of fecal material is seen in the colon. The patient is status post appendectomy. Normal abdominal aorta. Normal inferior vena cava. Normal retroperitoneum. Normal abdominal wall. Normal osseous structures. PELVIS Normal urinary bladder. Bilateral tubal ligation clips are seen. Normal visualized small intestine. Normal visualized colon. There is no pelvic fluid. There is no pelvic lymphadenopathy or mass lesion. Normal visualized pelvic arteries. Normal abdominal wall. Normal osseous structures. CT/CT Chest, Abd, Pel w/Contrast IMPRESSION: Small cholesterol containing gallstones. Electronically Signed: Johan Combs MD at 15:27 [facility] [email or web address]] ,
== END | disposition home or self-care (01) ==
LOC: CT 06:53
PROVIDERS: PCP Student in an Organized Health Care Education/Training Program; Referring Provider Internal Medicine Medical Oncology; Visit Provider Internal Medicine Medical Oncology
DX: C50.912 Malignant neoplasm of unspecified site of left female breast (principal)
CPT/HCPCS: 71260; 74177; 78306; A9503; Q9967; A4216

== ENCOUNTER 2023-05-31 07:24 | Day surgery (SDC) | payer OTHER, SELFPAY ==
--- NOTE | 2023-05-26 06:52 | EKG12_ITS ---
Test Reason : PRE OP Blood Pressure : / mmHG Vent. Rate : 068 BPM Atrial Rate : 068 BPM P-R Int : 162 ms QRS Dur : 094 ms QT Int : 400 ms P-R-T Axes : 030 047 068 degrees QTc Int : 425 ms Normal sinus rhythm Normal ECG Confirmed by MONICA MARIO, REJI ([id number]), marketing editor HAMIDA WILLIAMSON ([id number]) on 05/31/2023 1:42:55 P M Referred By: Michael Quiros Confirmed By:CATHRYN ANDERSON MD
[2023-05-31] VITALS (8 sets, daily range): BP systolic 99–117; BP diastolic 62–76; PULSE 55–95; RESP 16–18; TEMP 36.2–36.7; O2SAT 96–100; BMI 21.2
--- NOTE | 2023-05-31 | AXNB_PTH ---
PATIENT: NAY ALBRIGHT [place] [facility] [place][id number] AGE/SX: 52/F ROOM: RE05/31/[address]: Dr. Michael Quiros MD : 1970 BED: DIS: 05/31/2023 SPEC #: [id number] RECD: 05/31/23 12:04 STATUS: BEVERLEY RESharla #: [id number] DESTINI: 05/31/23 00:[address]: Michael Quiros DEPT: SURGICAL PATHOLOGY RECD BY: Radha Gomez ENTERED: 05/31/23 12:05 SP TYPE: AX NODE BX OTHR DR: Dr. Robbin Pagan DO Tissues: A - Axillary lymph node, NOS B - Left breast, NOS C - Axillary lymph node, NOS Procedures: Frozen Section (charge) Frozen Section Add'l ([facility]) Surgery Specimen Level V HEADER OPERATION: Breast stereo wire localization lumpectomy, sentinel node PRE-OP DIAGNOSIS: Abnormal ultrasound of breast TISSUE SUBMITTED: A - Left axillary sentinel lymph node biopsy, FS, B - Left breast mass lumpectomy, short suture - superior, long suture - lateral, skin - anterior, C - Additional left axillary sentinel lymph node biopsy, FS FROZEN SECTION DIAGNOSIS A. Left axillary sentinel lymph node, biopsy: One out of one lymph node, negative for carcinoma. C. Additional left axillary sentinel lymph node, biopsy: One out of one lymph node, negative for carcinoma. AM:sallie 06/01/2023 MICROSCOPIC DIAGNOSIS A. Left axillary sentinel lymph node, biopsy: One lymph node, negative for metastatic carcinoma. See comment. B. Left breast mass, lumpectomy with needle localization: Invasive lobular carcinoma. See cancer summary in the comment section. C. Additional left axillary sentinel lymph node, biopsy: One lymph node, negative for metastatic carcinoma. See comment. SJ:sallie 06/03/2023 COMMENT A & C. The lymph node is negative for metastatic carcinoma on multiple H & E levels and immunohisto-chemical stains for cytokeratins ([id number]). BREAST CANCER SUMMARY (A to C): Procedure - lumpectomy with wire localization Specimen laterality - left Tumor site - not specified Tumor size - 1.5 x 1.5 cm (measured microscopically). The tumor size is larger than measured grossly. Histologic type - invasive lobular carcinoma. Histologic grade ([place] grade): Glandular/tubular differentiation score - 3 Nuclear pleomorphism score - 1 Mitotic count score - 1 Overall grade - grade 1 (score of 5) Tumor focality - single focus of invasive carcinoma. Ductal carcinoma in situ - not identified Lobular carcinoma in situ - present Tumor extension: Skin - skin is present and uninvolved. Nipple - not applicable Skeletal muscle - no skeletal muscle is present. Margins: Invasive carcinoma margin - invasive carcinoma is 0.5 cm away from the closest (superior) margin. Ductal carcinoma in situ margin - not applicable Regional lymph nodes: Total number of lymph nodes examined - 2 Number of sentinel lymph nodes examined - 2 Number of lymph nodes with macrometastases, micrometastases or isolated tumor cells - 0 Treatment effect - no known presurgical therapy. Lymphvascular invasion - not identified Dermal lymphvascular invasion - not identified Distant metastasis - not applicable Additional Pathologic Findings - - Focal atypical lobular hyperplasia. - Focal fibrocystic changes and intraductal hyperplasia without atypia. Ancillary Studies: Previously performed on same tumor ([id number] / [id number]) ER: positive (>95%, strong intensity) DE: negative (0%) Ryx7wrl: negative (0) Microcalcifications - not identified Clinical History - Please make reference to previous specimen ([id number]), left breast mass, ultrasound-guided needle core biopsy with diagnosis of invasive lobular carcinoma. B. Tumor also show frequent perineural invasion. PATHOLOGIC STAGE: pT1c pN0(sn) pMx The above summary is in compliance with [employer] [place] [employer] (CAP) Cancer Protocols Checklist and [place] Joint Committee on Cancer (AJCC), Staging Manual, 8th Ed. Case has been reviewed in consultation with Dr. Perea who concurs with the above diagnosis. IDC:AM MICROSCOPIC DESCRIPTION Slides are reviewed. GROSS DESCRIPTION A - Received fresh for frozen section consultation labeled with the patient's name is a specimen designated left sentinel lymph node. The specimen consists of an irregular fragment of oneal-yellow fibrofatty tissue measuring 3.5 x 2.5 x 1.0 cm. Dissection reveals an elongated oneal nodule measuring 2.5 cm in greatest dimension. The nodule is bisected and totally submitted for frozen section consultation in two blocks. / AM: 06/01/2023 B - Received fresh for OR consultation labeled with the patient's name is a specimen designated left breast tissue. The specimen consists of a lumpectomy specimen measuring 4.0 x 4.0 x 3.0 cm and weighing 21.3 gm. An ellipse of skin is present on the anterior surface measuring 2.0 x 0.5 cm. The specimen is inked as follows: anterior - yellow, posterior - black, superior - blue, inferior - green, medial - red and lateral - orange. Serial reveal a oneal-white speculated mass measuring 1.0 cm in greatest dimension and located 1.0 cm from its closest (superior) margin of excision. The proximity of the lesion to the margin is conveyed to the surgeon intraoperatively. The remainder of the breast parenchyma is oneal-yellow and free of distinct mass lesions. [employer] sections are submitted in 12 cassettes as follows: 1 & 2 - perpendicular inked margins, 3 - skin, 4-6 - mass, 7 & 8 - uninvolved breast parenchyma adjacent to mass, 9-12 - breast parenchyma away from mass. Note, approximately 95% of the specimen received is submitted for microscopic examination and submitted after additional fixation. / AM: 06/01/2023 C - Received fresh for frozen section consultation labeled with the patient's name is a specimen designated additional left sentinel lymph node. The specimen consists of an ovoid fragment of oneal-yellow fibrofatty tissue measuring 2.0 x 2.0 x 1.0 cm. Dissection reveals a single oneal nodule measuring approximately 1.0 cm in greatest diameter. The specimen is bisected and totally submitted in one block for frozen section consultation. / AM: 06/01/2023 TC:0 CPT: 04081 x3, 27325, 82350 x2, 60770 ADDENDUM ADDENDUM ADDENDUM ADDENDUM ADDENDUM ADDENDUM ADDENDUM ADDENDUM 06/30/2023 09:13 ADDENDUM 06/30/2023 09:13 ADDENDUM 06/30/2023 09:13 ADDENDUM 06/30/2023 09:13 ADDENDUM 06/30/2023 09:13 An order for Oncotype testing was received from Dr. Byrd. This necessitated case review, block and slide selection by pathologist at [facility]. Breast Cancer Recurrence Score = 18 Results of the complete Oncotype testing ([employer] report) are viewable in EMR under: Reports - Pathology - Lab Pathology Report, Scanned.
--- NOTE | 2023-05-31 07:34 | NM_ITS ---
PROCEDURE: NUCLEAR MEDICINE Injection [place] Node - LEFT breast(s). REASON FOR EXAM: Female, 52 years old. Left breast cancer. TECHNIQUE: [place] node localization using radionuclide methods of the LEFT breast(s) was performed following subcutaneous administration of 1.1 mCi of of sulfur colloid Tc-99m. COMPARISON STUDIES : NM - None. CR - Not available for review at this time. CT - Not available for review at this time. MR - Not available for review at this time. US - comparison is made with prior sonogram of the left breast dated May 13, 2023. FINDINGS: 1.1 mCi of technetium labeled sulfur colloid was injected subcutaneously in 4 equal aliquots in the periareolar region. NM/Lymph Node Injection Only IMPRESSION: 1.1 mCi of technetium labeled sulfur colloid was injected subcutaneously in 4 equal aliquots in the periareolar region. Electronically Signed: Johan Combs MD at 8:48 EST ,
[2023-05-31] MEDS: Lactated Ringers 1,000 ML 15 ML IV (08:32)
--- NOTE | 2023-05-31 09:08 | BI_ITS ---
SURGICAL BREAST SPECIMEN RADIOGRAPH CLINICAL: Document presence of tissue clip marker in biopsy specimen. FINDINGS: Specimen shows presence of tissue clip marker. Electronically Signed: Johan Combs MD at 12:11 EST , BI/Breast Biopsy Specimen IMPRESSION: undefined
--- NOTE | 2023-05-31 09:30 | PCM.HP.BLA ---
History and Physical Date of Admission: 05/31/23 Allergies benzoyl peroxide Allergy (Mild, Verified 05/17/23 15:15) Unknown Medications sour mauricio extract 1,000 mg capsule (Tart Mauricio Extract) mg PO 09/28/18 [History Confirmed 05/17/23] multivit,mineral-folic acid 800 mcg-vit K 100 mcg-herbal no.289 tablet (Alive Once Daily Women 50 Plus) tab PO 02/05/20 [History Confirmed 05/17/23] nettle leaf (urtica dioica) 425 mg capsule mg PO 05/02/21 [History Confirmed 05/17/23] omega-3 fatty acids 1,000 mg capsule (Fish Oil Concentrate) 1,000 mg PO DAILY 05/02/21 [History Confirmed 05/17/23] etodolac 500 mg tablet 500 mg PO BID #40 tabs 06/17/22 [Rx Confirmed 05/17/23] [facility], [facility] Medical History (Updated 05/17/23 @ 15:[address] 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 Verbal report is that the findings are consistent with ductal carcinoma. A final report is still pending. I have discussed this with her and her . 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 Is patient in pain?: No Allergies benzoyl peroxide Allergy (Mild, Verified 05/14/23 12:15) Unknown Medications sour mauricio extract 1,000 mg capsule (Tart Mauricio Extract) mg PO 09/28/18 [History Confirmed 05/14/23] multivit,mineral-folic acid 800 mcg-vit K 100 mcg-herbal no.289 tablet (Alive Once Daily Women 50 Plus) tab PO 02/05/20 [History Confirmed 05/14/23] nettle leaf (urtica dioica) 425 mg capsule mg PO 05/02/21 [History Confirmed 05/14/23] omega-3 fatty acids 1,000 mg capsule (Fish Oil Concentrate) 1,000 mg PO DAILY 05/02/21 [History Confirmed 05/14/23] etodolac 500 mg tablet 500 mg PO BID #40 tabs 06/17/22 [Rx Confirmed 05/14/23] [facility] Medical History (Updated 05/14/23 @ 12:[address] 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 She is urgently referred via mammography for abnormal findings of her left breast. 52-year-old female. A1. Medical age 13. First child born when she was 27. She did breast-feed. No history of breast biopsies. No estrogen replacement. No family history of breast cancer. She has had a previous history of melanoma of the left anterior thigh. That apparently did not require sentinel node biopsy. For an undetermined period of time she has noted some dimpling at the 6 o'clock position left breast. She has no nipple discharge or drainage. No pain. As noted below she had mammography which is initially interpreted as BI-RADS 1. Based upon technician's helper recommendations though this was reviewed and left breast ultrasound was requested demonstrating a 6 x 3 x 5 mm poorly fine hyperechoic density left breast 6 o'clock position +3 cm. BI-RADS Category 4. She exercises daily. She otherwise enjoys good health. ADDENDUM by Dr. Johan Combs MD on 05/13/23 at 1510 ADDENDUM This is an addendum report. Additional imaging of the left breast was obtained. Compression spot views of the left breast in the mediolateral oblique and craniocaudal projections were obtained. Questionable focal density in the inferior medial aspect of the left breast. Correlation with ultrasound is recommended. BI-RADS Category 0. Electronically Signed: Johan Combs MD at 15:10 EST , MAMMOGRAPHY - BILATERAL SCREENING REASON FOR EXAM: Female, 52 years old. Routine annual screening examination. PERTINENT HISTORY: Non-contributory. TECHNIQUE: Digital bilateral breast halima (3D mammographic acquisition) in the CC and MLO projections. 2-D mediolateral oblique (MLO) and craniocaudad (CC) views of both breasts were obtained. CAD: Full Field Digital Mammography with Computer Added Detection was performed. COMPARISON: Comparison is made with prior study dated May 25, 2022 and January 13, 2021. FINDINGS: Breast Composition: The breasts are heterogeneously dense, which may obscure small masses. There are no dominant masses or suspicious calcifications. No other significant abnormalities are identified. There has been no significant change since the prior study. BI/SCRN MAMM (CAD)W/HALIMA BILAT IMPRESSION: Stable bilateral screening mammogram. Yearly follow-up mammogram recommended. (A) ASSESSMENT CATEGORY: BIRADS Category 1: Negative. A letter regarding these results will be sent to the patient by the facility within 30 days. Approximately 10% of breast cancers are not detected by mammography. A normal mammogram should not delay biopsy of a clinically suspicious abnormality. [id number] Electronically Signed: Johan Combs MD at 12:58 EST , May 13, 2023 STUDY: ULTRASOUND BREAST - LEFT REASON FOR EXAM: Female, 52 years old. Abnormal screening mammogram. TECHNIQUE: Axial and longitudinal images of the LEFT breast were performed with a high resolution ultrasound transducer. # OF IMAGES: [id number] COMPARISON: Comparison is made with prior mammogram done earlier today. FINDINGS: LEFT Breast: The medial aspect of the left breast was examined with ultrasound. There is a 6 mm x 3 mm x 5 mm poorly defined hypoechoic density at the 6:00 position of the breast at 3 cm from the nipple. Biopsy recommended. US/Breast Limited Unilateral IMPRESSION: 6 mm x 3 mm x 5 mm poorly defined hypoechoic solid density at the 6:00 position the breast at 3 7 from nipple. Biopsy is recommended. ASSESSMENT CATEGORY: BIRADS Category 4: Suspicious - Biopsy Should Be Considered. A letter regarding these results will be sent to the patient by the facility within 30 days. Electronically Signed: Johan Combs MD at 15:08 EST , ROS General General: No weight change, appetite, fatigue, colon cancer, breast cancer or weakness HEENT HEENT: No difficulty swallowing, eye injury, eye surgery, swollen glands or hoarseness Endo Endocrine: No thyroid disease, diabetes mellitus, thyroid cancer, Hair loss, heat intolerance or cold intolerance Skin Skin: No rash or changing moles Breast Breast: No left breast lump, right breast lump, nipple discharge, breast pain, abnormal mammogram, abnormal US or breast enlargement Musc Musculoskeletal: No back problems, arthritis, rheumatoid arthritis, gout or joint pain Cardio Cardiovascular: No murmur, pacemaker, heart disease, atrial fibrillation, high blood pressure, heart attack, heart stent, palpitations, shortness of breat with exertion or chest pain Psych Psychiatric: No depression, anxiety or hearing voices Resp Respiratory: No shortness of breath, No sleep apnea, No cough, No COPD, No asthma, No emphysema and No wheezing Gastro Gastrointestinal: No abdominal pain, No nausea or vomiting, No diarrhea, No constipation, No blood in stool, No acid reflux, No hemorrhoids, No ulcers, No gallbladder problem and No black,tarry stools Jesus Hematologic: No blood thinners, No blood disorders, No bleeding, No anemia and No blood clots Neuro Neurologic: No system reviewed and no additional complaints, except as documented, No as per HPI, No abnormal gait, No abnormal hearing, No abnormal movements, No abnormal speech, No behavioral changes, No burning sensations, No confusion, No convulsions, No disequilibrium, No dizziness, No localized weakness, No frequent falls, No headache(s), No lack of coordination, No loss of vision, No memory loss, No numbness, No other visual disturbances, No radicular pain, No restless legs, No sensory deficit, No syncope, No tingling, No tremor(s), No weakness and No other Exam Const General: cooperative, healthy appearing, comfortable and no acute distress Nutritional Appearance: average body habitus [facility] Head: normal to inspection Eyes General: appearance normal, both eyes and all related structures Neck Neck: normal visual inspection Chest Other: Right breast: No focal mass. No nipple discharge. No axillary or clavicular adenopathy Left breast: Distinct retraction is noted left breast 6 o'clock position. A indistinct mass is palpated at approximately 6:00 of 5:30 position. Nontender. No nipple discharge. No additional masses. No axillary or clavicular adenopathy Resp Effort & Inspection: normal respiratory effort Auscultation: clear to auscultation bilaterally Cardio Rate: regular rate Rhythm: regular rhythm GI Inspection: normal to inspection Palpation: soft and no hepatosplenomegaly Musc Cervical Spine: normal cervical lordosis Skin General: no rashes or lesions noted Neuro General: patient alert, patient awake and patient oriented x3 Extrem General: no calf tenderness Psych Appearance: grossly normal Office Procedures Biopsy Provider Documentation Ultrasound-guided needle core biopsy left breast 6:00 +3 cm There is obvious retraction left breast 6 o'clock position and a palpable nodularity with distinct abnormality seen on ultrasound. Timeout informed consent was obtained. The left breast was prepped with Betadine. Under ultrasound guidance 1% lidocaine mixed 50-50 with 0.5% Marcaine was used as a local anesthetic. Small stab incision was created. A 14-gauge Monopty needle was advanced to prefire depth. Prefire films were obtained. 2 cores were obtained. A marking clip was left chest and the medial edge of the lesion. Pressure was held for hemostasis. Steri-Strip Telfa OpSite dressing applied. The specimens were immediately transferred to formalin for analysis. She tolerated the procedure well. Michael Quiros M.D., F.A.C.S. Biopsy Breast Biopsy: [id number] US Guidance Procedure Time Out Time Out Informed consent given: Yes Consent signed: Yes Time out checklist: patient, procedure, site marked/identified, positioning of patient, supplies available, allergies confirmed and team agrees on procedure Time out staff in room: Yes Time out verified: Yes Time out date: 05/14/23 Time out time: 12:30 Assessment and Plan Assessment and Plan (1) Abnormal ultrasound of breast: Status: Acute Plan: 52-year-old female with left breast 6:00 retraction and palpable mass and abnormal ultrasound with somewhat more vague findings on mammogram. Clinically this is highly suspicious for malignancy and she is aware of this. Pathology is pending. We will have her return to the office on Wednesday, May 17, 2023. She is aware that we will likely obtain medical oncology consultation and possible breast MRI. Clinically I cannot detect any left axillary lymph nodes at this time. She otherwise enjoys good health. I appreciate the opportunity of assisting with her surgical care. Copy: Dr. Robbin Pagan and Dr. Elizabeth Quiros M.D., F.A.C.S ROS General General: No weight change, appetite, fatigue, colon cancer, breast cancer or weakness HEENT HEENT: No difficulty swallowing, eye injury, eye surgery, swollen glands or hoarseness Endo Endocrine: No thyroid disease, diabetes mellitus, thyroid cancer, Hair loss, heat intolerance or cold intolerance Skin Skin: No rash or changing moles Breast Breast: No left breast lump, right breast lump, nipple discharge, breast pain, abnormal mammogram, abnormal US or breast enlargement Musc Musculoskeletal: No back problems, arthritis, rheumatoid arthritis, gout or joint pain Cardio Cardiovascular: No murmur, pacemaker, heart disease, atrial fibrillation, high blood pressure, heart attack, heart stent, palpitations, shortness of breat with exertion or chest pain Psych Psychiatric: No depression, anxiety or hearing voices Resp Respiratory: No shortness of breath, No sleep apnea, No cough, No COPD, No asthma, No emphysema and No wheezing Gastro Gastrointestinal: No abdominal pain, No nausea or vomiting, No diarrhea, No constipation, No blood in stool, No acid reflux, No hemorrhoids, No ulcers, No gallbladder problem and No black,tarry stools Jesus Hematologic: No blood thinners, No blood disorders, No bleeding, No anemia and No blood clots Neuro Neurologic: No system reviewed and no additional complaints, except as documented, No as per HPI, No abnormal gait, No abnormal hearing, No abnormal movements, No abnormal speech, No behavioral changes, No burning sensations, No confusion, No convulsions, No disequilibrium, No dizziness, No localized weakness, No frequent falls, No headache(s), No lack of coordination, No loss of vision, No memory loss, No numbness, No other visual disturbances, No radicular pain, No restless legs, No sensory deficit, No syncope, No tingling, No tremor(s), No weakness and No other Exam Chest Other: Left breast biopsy site appears clean and dry. There is no ecchymosis. Assessment and Plan Assessment and Plan (1) Breast cancer, left: Status: Acute Qualifiers: Breast location: lower outer quadrant of breast Patient sex: female Plan: I am recommending the patient a bilateral breast MRI. The left breast lesion was best seen on ultrasound and was actually detected because of retraction at the 6 o'clock position left breast. Initial interpretation of the mammograms were BI-RADS 1. On repeat review there was suggestion of a vague area in the lower left breast. It would appear that mammography may not be her best imaging technique and therefore the breast MRI. I recommend medical oncology consultation and the patient would like to see Dr. Sarwat Byrd. I concur and we will expedite that referral. Tentatively I have recommended to her breast conservation surgery. We will tentatively look for a date where we could do a stereotactic wire localization with subsequent nuclear tracer blue dye left axillary sentinel lymph node biopsy and wire localized left breast lumpectomy. I would have ultrasound available in the room to backup the wire localization done to stereo. I have discussed technique, benefit, risk, alternatives. She has had an opportunity to ask and have questions answered. We will try to schedule and expedite her care. I appreciate the ongoing opportunity of assisting. Copy: Dr. Elizabeth Lentz and Dr. Robbin Pagan and Dr. Sarwat Quiros M.D., F.A.C.S The MRI did not demonstrate any additional disease other than that located at the 6 o'clock position left breast. The patient has been seen by Dr. Sarwat Byrd. After consideration she elects to proceed with breast conservation surgery. We plan to proceed with a nuclear tracer and blue dye left axillary sentinel lymph node biopsy with possible conversion to left axillary lymph node dissection if indicated. Stereotactic wire localization left breast 6:00 mass. Anticipate confirming that under ultrasound in the operating room. Anticipate then a wire localized left breast lumpectomy. She has had an opportunity to ask and have questions answered. We will proceed as noted. Michael Quiros M.D., F.A.C.S.
--- NOTE | 2023-05-31 09:56 | PCM.OPRPT ---
Problems Associated Problem List Diagnoses (1) Breast cancer, left: Report of Operation Date of Procedure: 05/31/23 Pre-Operative Diagnosis: Invasive lobular carcinoma lower outer left breast Post-Operative Diagnosis: Same Surgery/Procedure Performed:: Stereotactic wire localization left breast Nuclear tracer and blue dye left axillary sentinel lymph node biopsy Wire localized left breast lumpectomy Description of Surgical Findings:: Timeout informed consent was obtained. 52-year-old female was taken to the stereotactic unit placed prone on the table the left breast was placed in the medial lateral view that marking clip in question was identified stereotactic images were obtained digital information obtained on the single target site the breast was prepped with Betadine 1% lidocaine was used as a local anesthetic 1/2 cc was used. A 20-gauge Kopan's needle was advanced to depth +15 mm. The wire was displaced. Follow-up views demonstrated adequate localization. No apparent complication tolerated the procedure well. Sterile dressings were applied. She was subsequently sent to the op room for definitive surgical resection. Michael Quiros M.D., F.A.C.S. Surgeon: Michael Quiros Type of Anesthesia: Local
--- NOTE | 2023-05-31 10:01 | DCINST_ITS ---
Discharge Instructions Procedure Breast Surgery Diet Discharge Diet: No restrictions Activity Discharge Activity: May Not Drive (for 2-3 days or while taking narcotic pain meds.) May shower in (days): 1 Lifting Restrictions: 10 pounds for 1 week. Dressing / Incision Call your doctor if your incision/area has: Continuous Slow Oozing and Sudden Increased Bleeding Call your doctor if you observe: Fever of 101 or Higher Suture Line Care: Avoid Pulling/Pushing and Avoid Pinching/Bending Remove Dressing in: 1 day Additional Dressing/Incision Instructions:: Remove bulky dressing tomorrow. May leave any opsite dressing for 3-4 days. Keep dressing in place until your follow-up appointment. Follow Up Care Test Results: Test results from this visit will be discussed in further detail at your follow- up appointment, if applicable. Discharge Plan Admission Attending Provider: Michael Quiros Primary Care Provider: Robbin Pagan Discharge Orders/Prescriptions Prescriptions: No Action Alive Once Daily Women 50 Plus 800-100 mcg tablet 1 tab PO DAILY omega 3-jcx-fcy-fish oil [Fish Oil] 1,200 (144-216) mg capsule 1 cap PO DAILY Hold Instructions: ON HOLD FOR SURGERY 05/31/23 Tart Mauricio [id number] mg capsule 1 cap PO DAILY Other Ambulatory Orders: 12 Lead EKG (Routine) Timeframe: [id number] Location: None Selected Ordered By: Dr. Michael Quiros Referrals / Follow Up: Robbin Pagan DO [Primary Care Provider] - Disposition Disposition (needs filled in before D/C Order can be placed): Home, Self Care
[2023-05-31] MEDS: Cefazolin 2 GM in 0.9% Normal Saline (100mL Bag) 100 ML IV (10:26)
[2023-05-31] MEDS: Isosulfan Blue 1% 5 ML Vial (10:33)
[2023-05-31] MEDS: Bupivacaine Mpf 0.5% 30 ML VIAL (11:47)
--- NOTE | 2023-05-31 11:49 | OP.PCM_ITS ---
Report of Operation Date of Procedure: 05/31/23 Pre-Operative Diagnosis: Lower mid left breast invasive ductal carcinoma Post-Operative Diagnosis: Same Surgery/Procedure Performed:: Stereotactic wire localization and ultrasound wire localization lower mid left breast mass. Nuclear tracer and blue dye left axillary sentinel lymph node biopsy. Wire localized lumpectomy inferior mid left breast Description of Surgical Findings:: Timeout informed consent was obtained. The patient was taken to the stereotactic unit placed prone on the table the left breast was placed in a unilateral view. The item in question was identified Ceretec images were obtained digital information was taken under single target site breast was cleansed with Betadine 1% lidocaine was used as a local acetic Kopan's needle was advanced to depth +15 mm wire was displaced tape and gauze dressing applied follow-up images demonstrated adequate localization. She was subsequently sent to the operating room. The op room she underwent general anesthesia. She was supine on the table in the left arm was wrapped with soft roll and placed at right angles the table. She had already been to radiology upon presentation and had nuclear tracer placed. I prepped the breast with alcohol and injected 2 cc of isosulfan blue dye and massage was performed for 3 minutes. Then the left breast and axilla was prepped sterilely prepped and draped. An oblique incision was made in the left axilla blue dye lymphatic tracking was identified using blue dye and neoprobe I excised conglomerate of fibrofatty tissue. That specimen was sent for analysis further palpation suggested inferiorly as secondary node neoprobe confirmed this I dissected that area free. Hemostasis attained throughout with hemoclips and interrupted 3-0 Vicryl suture ligatures. Gauze and gauze was then placed for hemostasis. The inferior midportion of the left breast I made a vertical elliptical excision to include some skin use electrocautery to circumferentially dissect free. Hemostasis was attained were indicated with interrupted 3-0 Vicryl suture ligatures. 4 marking clips were placed to opal the edges of the excision. A short suture was placed superiorly and a long suture laterally the skin was anteriorly that was sent to pathology images demonstrating the previous biopsy clip to be in central position. Specimen was felt to have 1 cm clear margins. That wound was then closed with deep layer of interrupted 3-0 Vicryl subdermal layer of the same and then skin edges approximated opted for Monocryl subdermal stitches. The norma-incisional areas anesthetized with 0.5% Marcaine throughout the procedure a total of 30 cc was used for each site. The axilla was inspected and a fibular gauze was placed. That was also closed in layers with 3-0 Vicryl and then a running subicular 4 Monocryl. Local was used in the axilla as well. There were felt to be 2 sentinel lymph nodes were submitted. Both of these were negative for metastatic tumor. Steri-Strips Telfa OpSite bulky dry dressings were applied. Sponge and instrument and needle counts were reported to the surgeon to be correct. Specimens [place] lymph nodes x 2. Inferior mid left breast lumpectomy. Drains none. Blood loss minimal. The patient was taken the recovery room in satisfied condition without complication Michael Quiros M.D., F.A.C.S. Synoptic Portion: Element Response Options Operation performed with curative intent. Yes Tracer(s) used to identify sentinel nodes in the upfront surgery (non- neoadjuvant) setting (select all that apply). Blue dye and radioactive tracer Tracer(s) used to identify sentinel nodes in the neoadjuvant setting (select all that apply). Not applicable All nodes (colored or non-colored) present at the end of a dye-filled lymphatic channel were removed. Yes All significantly radioactive nodes were removed. Yes All palpably suspicious nodes were removed. Yes Biopsy-proven positive nodes marked with clips prior to chemotherapy were identified and removed. Not applicable Surgeon: Michael Quiros Type of Anesthesia: General and Local Anesthesiologist: Francisco Bower
[2023-05-31] MEDS: HYDROcodone Bitartrate/Apap 5/325 Tablet PO (13:08)
--- NOTE | 2023-05-31 13:57 | SUR.PHASEII ---
pt asked for the scopolamine patch to be removed behind her right ear. patch taken off.
--- NOTE | 2023-06-01 | IMM_PTH ---
PATIENT: NAY ALBRIGHT LOC: [facility] [place] U#:[id number] AGE/SX: 52/F ROOM: RE05/31/[address]: Dr. Michael Quiros MD : 1970 BED: DIS: 05/31/2023 SPEC #: [id number] RECD: 06/03/23 13:54 STATUS: BEVERLEY REQ #: [id number] DESTINI: 06/01/23 00:[address]: Michael Quiros DEPT: IMMUNOHISTOCHEMISTRY RECD BY: Regine Merino ENTERED: 06/03/23 13:58 SP TYPE: IMMUNO OTHR DR: Dr. Robbin Pagan, Tissues: A - LYMPH NODE BIOPSY C - LYMPH NODE BIOPSY Procedures: CK7 (add) Pankeratin (initial) Pankeratin (add) PHYSICIAN & INSTITUTION [place] [id number] SPECIMEN INFORMATION: Tissue Source: A - Left axillary sentinel lymph node, C - Additional left axillary sentinel lymph node Clinical Info: Abnormal ultrasound of breast Specimen Number: [id number] A1, A2 & C CPT code: 84515 x2, 40541 x4 METHODOLOGY: Deparaffinized sections of prefer/formalin-fixed tissue or PAP/DQ stained slides are incubated with monoclonal/polyclonal antibodies/oligonucleotide probes. Localization is made via biotin free immunoperoxidase method. Appropriate controls are performed and reacted as expected. Results on target cell population are indicated in the following table: RESULTS: ANTIBODY / CLONE RESULT Block A1 AE1-3 (AE1/AE3/PCK26) negative CK7 (OV-TL12/30) negative Block A2 AE1-3 (AE1/AE3/PCK26) negative CK7 (OV-TL12/30) negative Block C AE1-3 (AE1/AE3/PCK26) negative CK7 (OV-TL12/30) negative These tests were developed and their performance characteristics determined by [facility]. They may not have been cleared or approved by the U.S. Food and Drug Administration. The FDA has determined that such clearance or approval is not necessary. The above immunohistochemical/dualISH markers are ordered and reviewed by the Pathologist. INTERPRETATION: A. Left axillary sentinel lymph node, biopsy: One lymph node, negative for metastatic carcinoma. C. Additional left axillary sentinel lymph node, biopsy: One lymph node, negative for metastatic carcinoma. VALENTINE:sallie 06/04/2023
== END 2023-05-31 14:07 | disposition home or self-care (01) ==
LOC: SDC 07:26 → AC 07:27
PROVIDERS: PCP Student in an Organized Health Care Education/Training Program; Referring Provider Surgery; Visit Provider Surgery
PROC: 0HBV0ZZ Excision of Bilateral Breast, Open Approach (ICD-10-PCS; CPT 19302; principal; 2023-05-31 10:15)
DX: C50.912 Malignant neoplasm of unspecified site of left female breast (principal)
CPT/HCPCS: 38500; 00400; 19281; 38792; 76098; 88305; 88307; 88331; 88332; 88341; 88342; 93005; A4648; A9541; J7120; J2405; Q9968

== ENCOUNTER → 2023-09-23 | Outpatient (CLI) | payer OTHER, SELFPAY | END | disposition home or self-care (01) | PROVIDERS: PCP Student in an Organized Health Care Education/Training Program; Referring Provider Nurse Practitioner Women's Health; Visit Provider Nurse Practitioner Women's Health | DX: R39.9 Unspecified symptoms and signs involving the genitourinary system (principal) | CPT/HCPCS: 87077; 87086; 87088; 87186 ==

== ENCOUNTER → 2024-02-23 | Outpatient (CLI) | payer OTHER, SELFPAY ==
--- NOTE | 2024-02-23 07:41 | NM_ITS ---
CLINICAL: Female, 53 years old. BREAST CA, PAIN IN LEFT RIBS, NO INJURY WHOLE BODY NUCLEAR BONE SCAN TECHNIQUE: Following the IV administration of 28 mCi of Tc MDP, whole body bone imaging was performed with a gamma camera following a three hour delay. COMPARISON STUDIES : NM - None. CR - Not available for review at this time. CT - Not available for review at this time. MR - Not available for review at this time. US - Not available for review at this time. FINDINGS: There is a normal concentration of radiopharmaceutical throughout the axial and appendicular skeletal system without either a focal decrease or increase in uptake. NM/Bone Scan Whole Body IMPRESSION: Normal whole body nuclear bone scan. Electronically Signed: Johan Combs MD at 12:15 EDT ,
--- NOTE | 2024-02-23 07:51 | RAD_ITS ---
STUDY: X-RAY CHEST REASON FOR EXAM: Female, 53 years old. Breast cancer. Follow-up. TECHNIQUE: Frontal and lateral views of the chest. COMPARISON: None. FINDINGS: The lungs are clear and expanded. There is no demonstrated pleural abnormality. Normal size heart. Normal mediastinum and vickie. Normal visualized pulmonary arteries. Normal visualized aortic arch and descending thoracic aorta. Normal visualized thoracic spine. Normal visualized ribs, clavicles, and shoulders. No abnormality of the visualized soft tissue structures of the upper abdomen. RAD/Chest PA and Lateral IMPRESSION: No active or acute cardiopulmonary disease. Electronically Signed: Danyel Tam MD at 12:56 EDT ,
== END | disposition home or self-care (01) ==
LOC: NM 07:41
PROVIDERS: PCP Student in an Organized Health Care Education/Training Program; Referring Provider Internal Medicine Medical Oncology; Visit Provider Internal Medicine Medical Oncology
DX: C50.512 Malignant neoplasm of lower-outer quadrant of left female breast (principal); Z17.0 Estrogen receptor positive status [ER+]
CPT/HCPCS: 71046; 78306; A9503

== ENCOUNTER 2024-04-27 05:22 | Day surgery (SDC) | payer OTHER, SELFPAY ==
[2024-04-27] VITALS (8 sets, daily range): BP systolic 72–106; BP diastolic 45–78; PULSE 69–84; RESP 14–18; TEMP 35.8–37.2; O2SAT 97–100; BMI 20.5
--- NOTE | 2024-04-27 06:29 | PRE.ANES_ITS ---
ASA Classification* ASA Classification ASA Classification: 2 Assessment & Plan Anesthesia* Anesthesia Assessment Anesthesia Assessment: Discussed sedation and/or anesthesia options, risks, benefits, and alternatives with patient/parents/legal guardian/POA. Questions invited. The patient/parents/legal guardian/POA seems to understand and agrees to proceed with anesthesia plan. Reviewed the physical assessment, medical history, allergy history and patient home medications list prior to surgery/procedure/anesthetic and documented any changes. Performed airway and anesthesia risk assessments. Anesthesia Type Anesthesia Type: MAC History Source History Obtained from:: Patient and Chart Anesthesia Focused Assessment* Temperature: 98.6 F Pulse Rate: 77 Blood Pressure: 106/78 Respiratory Rate: 18 Pulse Ox: 100 Airway Assessment Mouth opens: >3 cm Mallampati Score: II Teeth Condition: Intact Neck Range of motion (ROM): Full ROM Focused Labs Anesthesia Preop lab: CBC WBC 4.6 K/mm3 (4.4-11.0) 04/24/24 08:07 RBC 4.27 M/mm3 (4.2-5.4) 04/24/24 08:07 Hgb 13.5 g/dL (12.0-15.0) 04/24/24 08:07 Hct 40.5 % (37-47) 04/24/24 08:07 Plt Count 241 K/mm3 (150-450) 04/24/24 08:07 CHEMISTRY Potassium 3.4 mmol/L (3.5-5.1) L 04/24/24 08:07 Sodium 142 mmol/L (136-145) 04/24/24 08:07 Phosphorus 3.0 mg/dL (2.5-4.9) 02/23/24 07:30 BUN 15 mg/dL (7-18) 04/24/24 08:07 Creatinine 0.82 mg/dL (0.55-1.02) 04/24/24 08:07 Glucose 104 mg/dL (74-106) 04/24/24 08:07 COAG Pre-Assessment Diagnosis/Proposed Procedure Planned Operative Procedure(s): CSCOPE Anesthesia History Anesthesia History - senior energy analyst: Anesthesia History - senior energy analyst Hx Hospitalization No 04/24/24 15:52 Any Problems With Anesthesia Yes: N,V IN PAST. NO ISSUES 04/24/24 15:52 WITH 05/2023 SURGERY Cholinesterase deficiency No 04/24/24 15:52 You/Your Family Experience No 04/24/24 15:52 fever (hyperthermia) with Relationship Recent Exposure to Contagious No 04/27/24 05:59 Disease Does patient have nerve No 04/24/24 15:52 stimulator Patient instructed to have device shut off --Does patient have Pacemaker No 04/27/24 05:59 or ICD? When Was Last Pacemaker Check QUESTION #4 FULL TEXT: You/Your Family Experience fever (hyperthermia) with Anesthesia Last Oral Intake Last Oral intake: Last Oral Intake NPO since 02:30 04/27/24 05:59 Meds taken in AM with sips of No 04/27/24 05:59 water? Meds patient instructed to take am of surgery PONV PONV - senior energy analyst: PONV - senior energy analyst Female Yes 04/24/24 15:52 HX of Motion Sickness No 04/24/24 15:52 HX of N/V After Surgery No 04/24/24 15:52 Non-Smoker Yes 04/24/24 15:52 Duration of Surgery greater No 04/24/24 15:52 than 60 minutes Number of Risk Factors 2 04/24/24 15:52 PONV Score Moderate Risk 04/24/24 15:52 Height & Weight Height & Weight: Anesthesia: Height & Weight Height 5 ft 5 in 04/27/24 05:59 Weight: 56 kg 04/27/24 05:59 Body Mass Index (BMI) 20.5 04/27/24 05:59 Respiratory Assessment Respiratory Assessment - senior energy analyst: Respiratory Tract Infection Hx - senior energy analyst Hx Respiratory Tract Infection No 04/24/24 15:52 STOP Sleep Apnea STOP Sleep Apnea - senior energy analyst: STOP Sleep Apnea - senior energy analyst Hx Hypertension No 04/24/24 15:52 Hx Sleep Apnea No 04/24/24 15:52 CPAP BIPAP Do you snore loudly (louder No 04/24/24 15:52 than talking or can be heard Do you often feel tired/ No 04/24/24 15:52 fatigued/ sleepy during daytime? Has anyone observed you stop No 04/24/24 15:52 breathing during sleep? STOP Results Negative 04/24/24 15:52 QUESTION #5 FULL TEXT : Do you snore loudly (louder than talking or can be heard through closed doors)? 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 Specify any problems Hx of Preganancy in last 3 No 04/24/24 15:52 Months Nurse Filling Out Transfusion DSCHRIBER 04/24/24 15:52 & Questions: Date: 04/24/24 04/24/24 15:52 Time: 15:54 04/24/24 15:52 Patient unable to answer at this time (ie. confused, unrespo /Reproduction History /Reproductive History - senior energy analyst: /Reproductive Hx- senior energy analyst Hx Now No 04/24/24 15:52 Gestational Age (in weeks): EDC: Hx Hx Para Hx Section SAB No 04/24/24 15:52 PFSH Medical History Wears glasses Arthritis Heartburn Genetic testing of female Post-menopausal Alcohol use Non-smoker Breast cancer, left Abnormal ultrasound of breast Left breast mass Osteoarthritis of right knee Internal derangement of right knee Right knee pain Right leg pain FINA I (cervical intraepithelial neoplasia I) Home Medications ?Medication ?Instructions ?Recorded ?Last Taken ?Type tamoxifen 20 mg tablet 20 mg PO DAILY #90 tabs 03/01/24 Unknown Rx Allergy/AdvReac Type Severity Reaction Status Date / Time benzoyl peroxide Allergy Mild Unknown Verified 04/27/24 06:02 Family History Unknown Cancer skin Mother Breast cancer Surgical History History of partial mastectomy H/O melanoma excision History of varicose vein ligation H/O cone biopsy of cervix Hx of appendectomy Social History Smoking Status: Never smoker alcohol intake: current details: social substance use type: does not use caffeine: Yes what type of physical activity do you participate in: walking seatbelt use: always do you feel safe at home: Yes additional social history: Manish Ward- 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
--- NOTE | 2024-04-27 06:30 | COLBX_PTH ---
PATIENT: NAY ALBRIGHT LOC: [place] U#:[id number] AGE/SX: 53/F ROOM: RE04/27/[address]: Dr. Jordan Larose DO : 1970 BED: DIS: 04/27/2024 SPEC #: [id number] RECD: 04/27/24 07:45 STATUS: BEVERLEY RESharla #: [id number] DESTINI: 04/27/24 06:[address]: Jordan Larose DEPT: SURGICAL PATHOLOGY RECD BY: Anna Guidry ENTERED: 04/27/24 09:38 SP TYPE: COLON BX OTHR DR: Dr. Robbin Pagan DO Tissues: Rectum, NOS Procedures: Surgery Specimen Level IV HEADER OPERATION: Colonoscopy with polypectomy PRE-OP DIAGNOSIS: Positive colorectal cancer screening using Cologuard TISSUE SUBMITTED: Rectal polyp MICROSCOPIC DIAGNOSIS Rectal polyp, biopsy: Fragments of tubular adenoma. AM.mr 04/28/2024 MICROSCOPIC DESCRIPTION Slides are reviewed. GROSS DESCRIPTION Received in fixative is one container labeled with the patient's name and designated Rectal polyp. The specimen consists of multiple irregular fragments of light oneal soft tissue that in aggregate measure 2.0 x 0.5 x 0.2 cm. The specimen is totally submitted in one cassette. 04/27/2024 TC:5 CPT:19956
--- NOTE | 2024-04-27 06:48 | HP.PCM_ITS ---
History and Physical Date of Admission: 04/27/24 Chief Complaint: positive colagaurd Details: NAY ALBRIGHT, is a 53 F who presents to the office today for establishment with [facility]. Pt has a PMHx of melanoma, FINA I, breast cancer and OA. She is here today after having a positive Cologuard test a few months ago. SHe has never had a colonoscopy before and was hoping to avoid it. She recently finished radiation tx for breast cancer in July 2023 and has been doing well since. She is currently still on tamoxifen 20 mg daily. She has no GI complaints; denies abdominal pain, n/v, diarrhea, constipation, heartburn or melena. ROS Const Constitutional: No anorexia, fatigue, fever(s), weight change or sleep problems Eyes Eyes: No change in vision ENT ENT: No abnormal hearing, difficulty swallowing, mouth lesions, tongue swelling or throat swelling Resp Respiratory: No cough or shortness of breath Cardio Cardiology: No chest pain at rest, chest pain with exertion, shortness of breath or dyspnea on exertion Gastro GI: No difficulty swallowing Genitourinary-Female: No difficulty urinating or burning urination Musc Musculoskeletal: Positive for joint pain, Arthritis and leg pain at night Skin Skin: No hair loss in leg, yellowing of the eye, itchy eyes, rash, skin ulcer or skin swelling Neuro Neurology: No abnormal hearing, abnormal movements, confusion, unsteady gait/balance or memory loss Psych Psychiatric: No anxiety, No confusion and No memory loss Endo Endocrine: No fatigue or weight change Aller/Imm Allergy/Immunologic: No itchy eyes, throat swelling or tongue swelling Jesus/Lymp Hematologic/Lymphatic: No easy bleeding, easy bruising or enlarged lymph nodes Exam Const General: cooperative and comfortable Nutritional Appearance: average body habitus and well nourished [facility] Head: normal to inspection Ears: hearing grossly normal bilaterally Nose: external nose normal Face and sinus: normal facial exam Eyes General: appearance normal, both eyes and all related structures Neck Neck: normal visual inspection Chest Chest palpation & inspection: normal inspection of the chest Resp Effort & Inspection: normal respiratory effort and able to speak in complete sentences GI Inspection: normal to inspection Skin General: no rashes or lesions noted Neuro General: patient alert Extrem General: normal to inspection Psych Affect: normal affect Assessment and Plan Assessment and Plan (1) Positive colorectal cancer screening using Cologuard test: Status: Acute Plan: Pt is a 53 yo female with PMHx of breast cancer, FINA I, melanoma and OA here today for evaluation. She had a positive Cologuard test and will need scheduled for a colonoscopy. She has no GI complaints or alarm signs. She finished radiation for breast cancer in Jul 2023 and is now on tamoxifen 20 mg BID. She is feeling well overall. SHe will be scheduled for a colonoscopy. -Colonoscopy -f/u as needed I have examined the patient and the H&P has been reviewed. There are no clinical changes since date of exam.
--- NOTE | 2024-04-27 07:21 | OP.COLON_ITS ---
Patient Name: Martha Fuller Procedure Date: 04/27/2024 6:25 AM Date of : 1970 Age: 53 Procedure: Colonoscopy Indications: Screening for colorectal malignant neoplasm Providers: Jordan Larose DO Referring MD: Robbin Pagan Do Medicines: Monitored Anesthesia Care Patient Profile: This is a 53 year old female. Refer to note in patient chart for documentation of history and physical. Last Colonoscopy: none. The patient's first colonoscopy is today. Complications: No immediate complications. Procedure: Pre-Anesthesia Assessment: - Prior to the procedure, a History and Physical was performed, and patient medications and allergies were reviewed. The patient is competent. The risks and benefits of the procedure and the sedation options and risks were discussed with the patient. All questions were answered and informed consent was obtained. Patient identification and proposed procedure were verified by the physician in the pre-procedure area. Mental Status Examination: alert and oriented. Airway Examination: normal oropharyngeal airway and neck mobility. Respiratory Examination: clear to auscultation. CV Examination: normal. Prophylactic Antibiotics: The patient does not require prophylactic antibiotics. Prior Anticoagulants: The patient has taken no anticoagulant or antiplatelet agents except for NSAID medication. ASA Grade Assessment: II - A patient with mild systemic disease. After reviewing the risks and benefits, the patient was deemed in satisfactory condition to undergo the procedure. The anesthesia plan was to use monitored anesthesia care (MAC). Immediately prior to administration of medications, the patient was re-assessed for adequacy to receive sedatives. The heart rate, respiratory rate, oxygen saturations, blood pressure, adequacy of pulmonary ventilation, and response to care were monitored throughout the procedure. The physical status of the patient was re-assessed after the procedure. After I obtained informed consent, the scope was passed under direct vision. Throughout the procedure, the patient's blood pressure, pulse, and oxygen saturations were monitored continuously. The Colonoscope was introduced through the anus and advanced to the cecum, identified by appendiceal orifice and ileocecal valve. The colonoscopy was performed without difficulty. The patient tolerated the procedure well. The quality of the bowel preparation was adequate. The terminal ileum, ileocecal valve, appendiceal orifice, and rectum were photographed. Scope In: 7:00:19 AM Scope Withdrawal Time 0 hours 10 minutes 13 seconds Scope Out: 7:15:25 AM Total Procedure Duration Time 0 hours 15 minutes 6 seconds Findings: The perianal and digital rectal examinations were normal. A 12 mm polyp was found in the rectum. The polyp was sessile. The polyp was removed with a cold snare. Resection and retrieval were complete. Verification of patient identification for the specimen was done. Estimated blood loss was minimal. Impression: - One 12 mm polyp in the rectum, removed with a cold snare. Resected and retrieved. Recommendation: - Repeat colonoscopy in 5 years for surveillance. - Continue present medications. Procedure Code(s): --- Professional --- 58521, Colonoscopy, flexible; with removal of tumor(s), polyp(s), or other lesion(s) by snare technique CPT copyright 2021 [employer]. All rights reserved. The codes documented in this report are preliminary and upon scow hand review may be revised to meet current compliance requirements. Jordan Larose DO 04/27/2024 7:20:11 AM This report has been signed electronically. Number of Addenda: 0 Note Initiated On: 04/27/2024 6:25 AM
--- NOTE | 2024-04-27 07:21 | OP.CCLET_ITS ---
04/27/2024 Robbin Pagan Do Re : Colonoscopy procedure for Martha Fuller Dear Ej This procedure was performed on April. My impressions and recommendations are as follows: Impressions : - One 12 mm polyp in the rectum, removed with a cold snare. Resected and retrieved. Recommendations : - Repeat colonoscopy in 5 years for surveillance. - Continue present medications. My findings are described in the full procedure note, which is enclosed. If I can be of further assistance, please feel free to contact me at . Sincerely, Jordan Larose, 04/27/2024 7:20:11 AM This report has been signed electronically.
--- NOTE | 2024-04-27 07:25 | PCM.POST.ANE ---
Anesthesia: Postop Eval I Current Vital Signs Temperature: 98.9 F Pulse Rate: 70 Blood Pressure: 72/45 Respiratory Rate: 16 Pulse Ox: 99 Oxygen Delivery Method: Room Air Assessment Airway patent: Yes Spontaneous unlabored respirations: Yes Mental status: Asleep nausea: No Vomiting: No Anesthesia Complication: No Fluid Hydration Crystalloid volume administer (ml): 40 Total IV fluid infused: 40 Progress Note Anesthesia document: Postop Eval 1 completed: Yes
--- NOTE | 2024-04-27 08:05 | PCM.POSTANE2 ---
Anesthesia Postop Eval I Sum Postop Eval Completion status Anesthesia document: Postop Eval 1 completed: Yes Anesthesia Postop Eval I Summary Anesthesia Postop Eval I Summary: Anesthesia Postop Eval I: Assessment Summary Airway patent Yes 04/27/24 07:27 [email or web address] Spontaneous unlabored Yes 04/27/24 07:27 [email or web address] respirations Mental status Asleep 04/27/24 07:27 [email or web address] nausea No 04/27/24 07:27 [email or web address] Vomiting No 04/27/24 07:27 [email or web address] Anesthesia Postop Eval I: Fluid Summary Crystalloid volume administer 40 04/27/24 07:27 [email or web address] (ml) Colloids volume administered ( ml) Blood Product volume administered (ml) Total IV fluid infused 40 04/27/24 07:27 [email or web address] Anesthesia Postop Eval I: Summary Notes Anesthesia Complication No 04/27/24 07:27 [email or web address] Anesthesia Complication Comment: Post-operative progress note Anesthesia: Postop Eval II Evaluation Mental status: Awake Pain Level: 0 nausea: No Vomiting: No
== END 2024-04-27 08:09 | disposition home or self-care (01) ==
LOC: EN 05:24 → AC 05:25
PROVIDERS: PCP Student in an Organized Health Care Education/Training Program; Referring Provider Student in an Organized Health Care Education/Training Program; Visit Provider Internal Medicine Gastroenterology
PROC: 0DJD8ZZ Inspection of Lower Intestinal Tract, Via Natural or Artificial Opening Endoscopic (ICD-10-PCS; CPT 45378; principal; 2024-04-27 06:25)
DX: Z12.11 Encounter for screening for malignant neoplasm of colon (principal); D12.8 Benign neoplasm of rectum
CPT/HCPCS: 45385; 88305; A4216; J2405

== ENCOUNTER → 2024-05-03 | Outpatient (CLI) | payer OTHER, SELFPAY ==
--- NOTE | 2024-05-03 08:57 | BI_ITS ---
MAMMOGRAPHY - BILATERAL DIAGNOSTIC REASON FOR EXAM: Female, 53 years old. Status post left lumpectomy follow-up. PERTINENT HISTORY: Personal history of breast cancer. TECHNIQUE: Digital bilateral breast luiz (3D mammographic acquisition) in the CC and MLO projections. 2-D mediolateral oblique (MLO) and craniocaudad (CC) views of both breasts were obtained. CAD: Full Field Digital Mammography with Computer Added Detection was performed. COMPARISON: Comparison is made with prior study dated May 13, 2023 and May 31, 2023. FINDINGS: Breast Composition: The breasts are heterogeneously dense, which may obscure small masses. There are no dominant masses or suspicious calcifications. The patient is status post lumpectomy in the slightly inferior central aspect of the left breast with resultant postoperative scarring. There is deformity of the retroareolar region of the left breast. Surgical clips are seen in the left axilla. No other significant abnormalities are identified. BI/DIAG MAMM W/CAD, BILAT IMPRESSION: Status post lumpectomy in the left breast as described. Postsurgical changes are seen. One year follow-up recommended. (A) ASSESSMENT CATEGORY: BIRADS Category 2: Benign. A letter regarding these results will be sent to the patient by the facility within 30 days. Approximately 10% of breast cancers are not detected by mammography. A normal mammogram should not delay biopsy of a clinically suspicious abnormality. Electronically Signed: Johan Combs MD at 11:30 EST ,
--- NOTE | 2024-05-03 09:45 | US_ITS ---
STUDY: ULTRASOUND BREAST - LEFT REASON FOR EXAM: Female, 53 years old. History of breast cancer and prior lumpectomy. TECHNIQUE: Axial and longitudinal images of the LEFT breast were performed with a high resolution ultrasound transducer. # OF IMAGES: 15 COMPARISON: Comparison is made with prior mammogram done earlier in the day. FINDINGS: LEFT Breast: The inferior central aspect of the left breast was examined with ultrasound. There is evidence of postoperative scarring at the site of the lumpectomy. US/Breast Limited Unilateral IMPRESSION: Postoperative changes seen at the lumpectomy site. ASSESSMENT CATEGORY: BIRADS Category 2: Benign. A letter regarding these results will be sent to the patient by the facility within 30 days. Electronically Signed: Johan Combs MD at 13:46 EST ,
== END | disposition home or self-care (01) ==
PROVIDERS: PCP Student in an Organized Health Care Education/Training Program; Referring Provider Student in an Organized Health Care Education/Training Program; Visit Provider Student in an Organized Health Care Education/Training Program
DX: C50.512 Malignant neoplasm of lower-outer quadrant of left female breast (principal); Z17.0 Estrogen receptor positive status [ER+]
CPT/HCPCS: 76642; 77062; 77066; G0279

== ENCOUNTER → 2025-05-03 | Outpatient (CLI) | payer OTHER, SELFPAY ==
--- NOTE | 2025-05-03 11:00 | BD_ITS ---
PROCEDURE: DEXA BONE DENSITY STUDY N/A REASON FOR EXAM: OSTEOPOROSIS; ON ENDOCRINE THERAPY F, age 54 y/o . Postmenopausal. TECHNIQUE: Procedure Code: BDDBD Modality: DX Procedure: DEXA BONE DENSITY STUDY COMPARISON: May 25, 2023. FINDINGS: BMD and T-SCORES Lumbar spine: 0.826 g/cm2, T-score -2.5 Levels: L1 through L4 Change from prior: Improvement of 2.3%. Left femoral neck: 0.721 g/cm2, T-score -1.2 Femoral neck comparison data not recommended for monitoring change. Left total hip: 0.821 g/cm2, T-score -1.0 Change from prior: Improvement of 5.2%. Right femoral neck: 0.659 g/cm2, T-score -1.7 Femoral neck comparison data not recommended for monitoring change. Right total hip: 0.840 g/cm2, T-score -0.8 Change from prior: Improvement of 3%. The World Health Organization has defined the following categories based on bone density: Normal bone density: T-score equal to or greater than -1.0 Osteopenia: T-score between -1.0 and -2.5 Osteoporosis: T-score equal to or less than -2.5 FRAX (or Comparable) Fracture Risk Assessment: 10 Year Probability of Fracture: Major Osteoporotic Fracture: 7 point% Hip Fracture: 0.6% (Note: FRAX is not to be reported in setting of normal range bone density, osteoporosis on DEXA, known history of osteoporosis, prior osteoporotic hip or vertebral fracture, or for any patient undergoing pharmacological treatment for bone loss.) The National Osteoporosis Foundation (NOF) recommends pharmacological treatment for patients with a FRAX 10-year risk of 3% or higher for a hip fracture, or 20% or higher for a major osteoporotic fracture, to prevent osteoporosis and reduce fracture risk. The patient does meet the pharmacological treatment recommendations for prevention of osteoporosis. BD/Dexa Bone Density Study IMPRESSION: OSTEOPENIA. Recommend follow-up as clinically warranted. Reading Location: [id number]
--- NOTE | 2025-05-03 11:31 | BI_ITS ---
EXAM: DIAG MAMM W/CAD, BILAT 05/03/2025 CLINICAL HISTORY: F, Age 54 y/o , DENSE BREAST TISSUE; H/O BREAST CANCER. Prior left lumpectomy. Mother with breast cancer. TECHNIQUE: Procedure Code: [id number] Modality: MG Procedure: DIAG MAMM W/CAD, BILAT. COMPARISON: Prior exam(s) dated May 03, 2024.. FINDINGS: TISSUE DENSITY: The breasts are heterogeneously dense, which may obscure small masses. Bilateral Breast Mammographic Findings: No significant masses, calcifications or other abnormalities are identified. Once again, the patient is status post lumpectomy in the deep retroareolar region of the left breast with resultant postoperative surgical changes as well as deformity of the breast. No suspicious masses, areas of developing architectural distortion, or suspicious calcifications. There has been no significant interval change. BI/DIAG MAMM W/CAD, BILAT IMPRESSION: Stable bilateral screening mammogram. OVERALL FINAL ASSESSMENT BI-RADS 2: BENIGN RECOMMENDATION: Routine annual follow-up in 1 Year Additional Recommendation none A letter with findings and recommendations will be mailed to the patient. Reading Location: [id number]
== END | disposition home or self-care (01) ==
LOC: OPBI 11:20
PROVIDERS: PCP Student in an Organized Health Care Education/Training Program; Referring Provider Nurse Practitioner Family; Visit Provider Nurse Practitioner Family
DX: C50.512 Malignant neoplasm of lower-outer quadrant of left female breast (principal); Z17.0 Estrogen receptor positive status [ER+]; M81.0 Age-related osteoporosis without current pathological fracture
CPT/HCPCS: 77066; 77080